=== PATIENT | female | born 1945 | race Caucasian/White ===

== ENCOUNTER → 2022-11-04 23:20 | Outpatient (CLI) | payer MEDICARE, SELFPAY ==
[2022-11-04 18:43] LABS: Basophils % 0.5 % (0.1-2.0); Eosinophils # 0.2 K/mm3 (0.0-0.4); Eosinophils % 2.6 % (0.1-12.0); Hemoglobin 14.5 g/dL (12.2-16.2); Lymphocytes % 30.1 % (10-50); Mean Corpuscular HGB Conc 31.5 g/dL (31.8-35.4); Mean Corpuscular Volume 95.3 fl (81-99); Mean Platelet Volume 9.3 fl (7.4-10.4); Monocytes # 0.4 K/mm3 (0.1-1.0); Monocytes % 6.4 % (1.7-9.3); Neutrophils # 3.9 K/mm3 (1.8-7.8); Neutrophils % 60.3 % (37.0-80.0); Platelet Count 221 K/mm3 (142-424); Red Blood Count 4.83 M/mm3 (4.20-5.40); Red Cell Distribution Width 13.6 % (11.5-17.5); White Blood Count 6.5 K/mm3 (4.8-10.8)
[2022-11-04 19:03] LABS: Alanine Aminotransferase 10 U/L (12-78); Albumin Level 3.9 g/dl (3.5-5.0); Albumin/Globulin Ratio 1.2 (1.1-1.8); Alkaline Phosphatase 142 U/L (38-126); Anion Gap 14.4 mEq/L (5-15); Aspartate Amino Transferase 23 U/L (14-36); Bilirubin,Total 0.4 mg/dl (0.2-1.3); Blood Urea Nitrogen 13 mg/dl (7-17); Calcium 8.4 mg/dl (8.4-10.2); Carbon Dioxide 26 mmol/L (22.0-30.0); Chloride 105 mmol/L (98-107); Estimated Glomerular Filt Rate 120 ml/min (>60); GFR (African American) 145 ML/MIN (>60); Globulin 3.2 g/dL (1.3-3.2); Glucose 80 mg/dl (74-100); Potassium 4.4 mmoL/L (3.5-5.1); Sodium 141 mmol/L (136-145); Total Protein,Serum 7.1 g/dl (6.3-8.2)
[2022-11-04 19:35] LABS: Thyroid Stimulating Hormone 1.97 uIU/mL (0.465-4.68)
== END ==
PROVIDERS: PCP Family Medicine; Visit Provider Family Medicine
DX: E78.00 Pure hypercholesterolemia, unspecified (principal); Z76.89 Persons encountering health services in other specified circumstances; Z79.899 Other long term (current) drug therapy
CPT/HCPCS: 80053; 84443; 85025

== ENCOUNTER 2023-11-09 19:51 | Inpatient (IN) | payer MEDICARE, MEDICAID, SELFPAY ==
[2023-11-09] VITALS (11 sets, daily range): BP systolic 87–142; BP diastolic 52–78; PULSE 70–105; RESP 10–17; TEMP 36.6–37.6; O2SAT 82–100; BMI 21.6; BMI 20.6
--- NOTE | 2023-11-09 19:56 | CT_ITS ---
PROCEDURE INFORMATION: Exam: CTA Head With Contrast, Arteriography Exam date and time: 11/09/2023 8:04 PM Age: 78 years old Clinical indication: Stroke-like symptoms; Altered mental status/memory loss; Additional info: Prior CVA with L deficits; Now with ams/lethargy TECHNIQUE: Imaging protocol: Computed tomographic angiography of the head with contrast. Exam focused on the arteries. 3D rendering (Not supervised by radiologist): MIP and/or 3D reconstructed images were created by the technologist. Radiation optimization: All CT scans at this facility use at least one of these dose optimization techniques: automated exposure control; mA and/or kV adjustment per patient size (includes targeted exams where dose is matched to clinical indication); or iterative reconstruction. Contrast material: ISOVUE; Contrast volume: 100 ml; Contrast route: INTRAVENOUS (IV); COMPARISON: CT HEAD/BRAIN WO CON 11/09/2023 8:01 PM FINDINGS: ANTERIOR CIRCULATION: Right internal carotid artery: Intracranial segment is patent with no significant stenosis. No aneurysm. Right middle cerebral artery: No occlusion or significant stenosis. No aneurysm. Right anterior cerebral artery: No occlusion or significant stenosis. No aneurysm. Left internal carotid artery: Intracranial segment is patent with no significant stenosis. No aneurysm. Left middle cerebral artery: No occlusion or significant stenosis. No aneurysm. Left anterior cerebral artery: No occlusion or significant stenosis. No aneurysm. POSTERIOR CIRCULATION: Right vertebral artery: No occlusion or significant stenosis. No aneurysm. Left vertebral artery: No occlusion or significant stenosis. No aneurysm. Basilar artery: No occlusion or significant stenosis. No aneurysm. Right posterior cerebral artery: No occlusion or significant stenosis. No aneurysm. Left posterior cerebral artery: No occlusion or significant stenosis. No aneurysm. Brain: Please see patient's CT brain report, performed same day. Cerebral ventricles: No ventriculomegaly. Bones/joints: Unremarkable. No acute fracture. Soft tissues: Unremarkable. IMPRESSION: No large vessel stenosis or occlusion.
--- NOTE | 2023-11-09 19:56 | CT_ITS ---
PROCEDURE INFORMATION: Exam: CTA Neck With Contrast Exam date and time: 11/09/2023 8:04 PM Age: 78 years old Clinical indication: Stroke-like symptoms; Altered mental status/memory loss; Additional info: Prior CVA with L deficits; Now with ams/lethargy TECHNIQUE: Imaging protocol: Computed tomographic angiography of the neck with contrast. Exam focused on the cervical segments of the vasculature. 3D rendering (Not supervised by radiologist): MIP and/or 3D reconstructed images were created by the technologist. Radiation optimization: All CT scans at this facility use at least one of these dose optimization techniques: automated exposure control; mA and/or kV adjustment per patient size (includes targeted exams where dose is matched to clinical indication); or iterative reconstruction. Contrast material: ISOVUE; Contrast volume: 100 ml; Contrast route: INTRAVENOUS (IV); COMPARISON: CT ANGIO HEAD 11/09/2023 8:04 PM FINDINGS: Right common carotid artery: No stenosis. No dissection or occlusion. Right internal carotid artery: No stenosis of the extracranial segment. No dissection or occlusion. Right external carotid artery: No occlusion or stenosis of the origin. Left common carotid artery: No stenosis. No dissection or occlusion. Left internal carotid artery: No stenosis of the extracranial segment. No dissection or occlusion. Left external carotid artery: No occlusion or stenosis of the origin. Right vertebral artery: No stenosis. No dissection or occlusion. Left vertebral artery: No stenosis. No dissection or occlusion. Soft tissues: Normal. No significant soft tissue swelling. Bones/joints: Degenerative changes noted throughout the visualized cervical and thoracic spine. Prominent kyphosis of the cervical spine noted. Posterior subluxation of C3 on C4 anterior subluxation of C5 on C6. Multilevel degenerative disc disease with central canal stenosis and bilateral neural foraminal narrowing noted. Multilevel facet arthropathy noted. Age-indeterminate vertebral body height loss of T3 and T4 noted. Age-indeterminate severe vertebral body height loss of T7. Follow-up clinically. IMPRESSION: 1. No severe stenosis or occlusion. 2. Additional nonacute findings, noted above REFERENCES: NASCET CRITERIA. The degree of stenosis in the cervical segment of the internal carotid artery is based on NASCET criteria. Normal is no stenosis. Mild is less than 50% stenosis. Moderate is 50-69% stenosis. Severe is 70% to 99% stenosis. Total occlusion is no detectable patent lumen.
--- NOTE | 2023-11-09 19:56 | XR_ITS ---
PROCEDURE INFORMATION: Exam: XR Chest Exam date and time: 11/09/2023 8:03 PM Age: 78 years old Clinical indication: Other: AMS TECHNIQUE: Imaging protocol: Radiologic exam of the chest. Views: 1 view. COMPARISON: No relevant prior studies available. FINDINGS: Lungs: Scarring versus atelectasis noted left lung base. Overall decreased left lung volumes noted, compared with right side. Pleural spaces: Unremarkable. No pleural effusion. No obvious pneumothorax. Heart/Mediastinum: Unremarkable. No cardiomegaly. Bones/joints: Diffuse osteopenia noted. Degenerative changes noted in the bilateral shoulders and thoracolumbar spine.. IMPRESSION: 1. Left lower lobe atelectasis versus scarring with decreased volume of left lung, compared with the right side. 2. No focal airspace consolidation
--- NOTE | 2023-11-09 19:56 | CT_ITS ---
PROCEDURE INFORMATION: Exam: CT Head Without Contrast Exam date and time: 11/09/2023 8:01 PM Age: 78 years old Clinical indication: Stroke-like symptoms; Altered mental status/memory loss; Additional info: Prior CVA with L deficits; Now with ams/lethargy TECHNIQUE: Imaging protocol: Computed tomography of the head without contrast. Radiation optimization: All CT scans at this facility use at least one of these dose optimization techniques: automated exposure control; mA and/or kV adjustment per patient size (includes targeted exams where dose is matched to clinical indication); or iterative reconstruction. Other technique: STROKE PROTOCOL was implemented. COMPARISON: No relevant prior studies available. FINDINGS: Brain: An off axis imaging technique is used. There is no acute hemorrhage or obvious acute infarct. Cortical volume loss noted. Scattered hypodensities noted in the bilateral periventricular and deep white matter. Atherosclerosis noted in the bilateral cavernous carotid arteries. The patient's gaze, based on the position of the bilateral lenses, is divergent. Cerebral ventricles: No ventriculomegaly. Paranasal sinuses: Mucosal thickening is noted in the bilateral paranasal sinuses Mastoid air cells: Visualized mastoid air cells are well aerated. Bones/joints: Unremarkable. No acute fracture. Soft tissues: Unremarkable. IMPRESSION: 1. No acute intracranial disease or hemorrhage. 2. No obvious acute infarct. Please note if the patient's symptoms do not improve, or worsen, consider MRI with diffusion imaging. 3. Chronic deep white matter ischemic and senescent changes noted. Please see above. ASSESSMENT: ASPECTS ([place] Stroke Program Early CT Score) is 10.
--- NOTE | 2023-11-09 20:06 | PC.NURSE ---
ciera bustamante speaking with sister at this time.
--- NOTE | 2023-11-09 20:09 | PC.NURSE ---
return from ct at this time. placed back on monitor
[2023-11-09 20:10] LABS: VBG Oxygen Saturation 96.7 % (50-70); VBG PCO2 37.5 mmol/L (35-51); VBG PH 7.39 mmol/L (7.31-7.41); VBG PO2 84.4 mmol/L (28-40); VBG Total CO2 23.2 mmol/L (23-27)
[2023-11-09] MEDS: SODIUM CHLORIDE 0.9% 10ML SYR (RAD ONLY) 10 ML IV (20:12)
[2023-11-09] MEDS: 0.9 % SODIUM CHLORIDE 50 ML VIAL IV (20:12)
[2023-11-09 20:13] LABS: Basophils % 0.3 % (0.1-2.0); Eosinophils # 0.1 K/mm3 (0.0-0.4); Eosinophils % 0.5 % (0.1-12.0); Hematocrit 40.8 % (37.0-47.0); Hemoglobin 13.3 g/dL (12.2-16.2); Lymphocytes # 0.8 K/mm3 (0.7-4.5); Lymphocytes % 6.3 % (10-50); Mean Corpuscular HGB Conc 32.7 g/dL (31.8-35.4); Mean Corpuscular Hemoglobin 31.8 pg (27.0-31.2); Mean Corpuscular Volume 97.4 fl (81-99); Mean Platelet Volume 8.6 fl (7.4-10.4); Monocytes # 0.7 K/mm3 (0.1-1.0); Monocytes % 5.2 % (1.7-9.3); Neutrophils # 10.9 K/mm3 (1.8-7.8); Neutrophils % 87.6 % (37.0-80.0); Platelet Count 246 K/mm3 (142-424); Red Blood Count 4.19 M/mm3 (4.20-5.40); Red Cell Distribution Width 12.6 % (11.5-17.5); White Blood Count 12.4 K/mm3 (4.8-10.8)
[2023-11-09] MEDS: IOPAMIDOL-370 (76%);100ML BOTTLE 100 ML IV (20:13)
[2023-11-09 20:14] LABS: MANUAL DIFFERENTIAL MANUAL DIFFERENTIAL (MANUAL DIFF)
--- NOTE | 2023-11-09 20:18 | HMH.EDGENADL ---
Discharge Plan Disposition Patient Disposition: Admitted Clinical Impressions Clinical Impression: AMS (altered mental status), Pneumonia, Respiratory failure Discharge ED Provider: Kaur Alcaraz General Adult HPI General Chief complaint: Shortness of Breath/Dyspnea Stated complaint: AMS Time Seen by Provider: 11/09/23 19:56 History of Present Illness HPI narrative: This patient is a 78-year-old female presenting to the emergency department for evaluation with concern for breathing difficulties. According to EMS who brought the patient in, they were called to the home because the patient seemed to be having trouble breathing. Patient is in care of her sister and grandson. They were not able to provide much other history. They stated that she had snoring upon their arrival so they put her on 15 L nonrebreather. On this, her oxygen saturation and vitals were fine. They noted she did not talk to them to contribute history, but she was maintaining her airway. We called and had an interactive discussion with the patient's sister who advised that she has a history of CP and is bedbound at baseline. She is mostly nonverbal according to the sister, but does answer some simple questions. She notes that she called EMS because she seemed to be breathing more shallow than usual. She also noted that she was grabbing at her neck, so she thought maybe she had neck pain, so she did give her Tylenol. No other concerns noted at this time. Patient does not contribute to history given her baseline mental status. Related Data Home Medications Medication Instructions Recorded Confirmed tizanidine 4 mg tablet 4 mg PO BID PRN 11/04/22 01/06/23 atorvastatin 40 mg tablet 40 mg PO HS 01/06/23 01/06/23 metoprolol tartrate 25 mg tablet 25 mg PO DAILY 01/06/23 01/06/23 pantoprazole 40 mg granules 40 mg PO DAILY 01/06/23 01/06/23 delayed-release for susp in packet Previous Rx's Medication Instructions Recorded diazepam 5 mg tablet 5 mg PO HS PRN sleep #30 tabs 11/04/22 gabapentin 800 mg tablet 800 mg PO TID #90 tabs 11/04/22 Allergies Allergy/AdvReac Type Severity Reaction Status Date / Time No Known Allergies Allergy Verified 01/06/23 13:47 [facility] Disclaimer: The information contained in this section may have been updated after the patient was seen, as this information can be updated by other users. Social History Smoking Status: Unknown if ever smoked alcohol intake: never substance use type: denies use current occupational status: disabled Travel in the last 8 weeks: None household members: family housing: house marital status: single education level: other ROS Obtained: Yes All systems reviewed & no additional complaints except as documented Physical Exam General General appearance: alert Head Head exam: atraumatic and normocephalic Eye Eye exam: Present normal appearance, PERRL and EOMI ENT ENT exam: Present normal exam, normal oropharynx, mucous membranes moist and normal external ear exam Neck Neck exam: Present normal inspection, full ROM and trachea midline; Absent tenderness Chest Chest inspection: Present symmetric chest wall rise, rash (dermatitis below each breast) and other; Absent tenderness Respiratory Respiratory exam: Present normal lung sounds bilaterally; Absent respiratory distress, wheezes, stridor or accessory muscle use Cardiovascular Cardiovascular exam: Present regular rate and normal rhythm Abdominal Exam Abdominal exam: Present soft; Absent distention, tenderness or guarding Extremities Exam Extremities exam: Present normal capillary refill and other (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 Margarito Inquiry Pt receiving controlled substance: No Vital Signs: 11/09/23 19:51 11/09/23 20:14 11/09/23 20:30 Temperature 99.6 F Temperature Source Rectal Pulse Rate 105 H 99 H Pulse Rate [Left] 101 H Respiratory Rate 15 13 15 Blood Pressure 142/76 H 132/72 Blood Pressure [Right Arm] 139/78 Blood Pressure Mean 109 92 Blood Pressure Mean [Right Arm] 98 Blood Pressure Source [Right Arm] Automatic Cuff Blood Pressure Position Blood Pressure Position [Right Arm] Supine 02 Sat by Pulse Oximetry 94 L 95 82 L Oxygen Delivery Method Room Air Room Air Oxygen Flow Rate (LPM) 11/09/23 20:45 11/09/23 21:19 11/09/23 21:30 Temperature Temperature Source Pulse Rate 99 H 83 79 Pulse Rate [Left] Respiratory Rate 15 12 12 Blood Pressure 107/61 L 97/55 L Blood Pressure [Right Arm] Blood Pressure Mean 75 69 Blood Pressure Mean [Right Arm] Blood Pressure Source [Right Arm] Blood Pressure Position Blood Pressure Position [Right Arm] 02 Sat by Pulse Oximetry 96 95 94 L Oxygen Delivery Method Nasal Cannula Nasal Cannula Nasal Cannula Oxygen Flow Rate (LPM) 11/09/23 22:00 11/09/23 22:12 11/09/23 22:16 Temperature Temperature Source Pulse Rate 73 70 71 Pulse Rate [Left] Respiratory Rate 14 13 17 Blood Pressure 88/54 L 87/55 L 94/54 L Blood Pressure [Right Arm] Blood Pressure Mean 62 63 65 Blood Pressure Mean [Right Arm] Blood Pressure Source [Right Arm] Blood Pressure Position Blood Pressure Position [Right Arm] 02 Sat by Pulse Oximetry 95 96 95 Oxygen Delivery Method Nasal Cannula Nasal Cannula Nasal Cannula Oxygen Flow Rate (LPM) 11/09/23 22:57 Temperature 99.6 F Temperature Source Rectal Pulse Rate 87 Pulse Rate [Left] Respiratory Rate 15 Blood Pressure 98/52 L Blood Pressure [Right Arm] Blood Pressure Mean Blood Pressure Mean [Right Arm] Blood Pressure Source [Right Arm] Blood Pressure Position Supine Blood Pressure Position [Right Arm] 02 Sat by Pulse Oximetry Oxygen Delivery Method Nasal Cannula Oxygen Flow Rate (LPM) 2 Lab Data Lab results reviewed: Yes I reviewed the patient's lab results. Lab Results 11/09/23 19:56: VBG pH 7.39, VBG pCO2 37.5, VBG pO2 84.4 H, VBG HCO3 22.0 L, VBG Total CO2 23.2, VBG O2 Saturation 96.7 H, VBG Base Excess -3.0 L, VBG Lactic Acid 2.0 11/09/23 19:58: WBC 12.4 H, RBC 4.19 L, Hgb 13.3, Hct 40.8, MCV 97.4, MCH 31.8 H, MCHC 32.7, RDW 12.6, Plt Count 246, MPV 8.6, Neut % (Auto) 87.6 H, Lymph % (Auto) 6.3 L, [place] % (Auto) 5.2, Eos % (Auto) 0.5, Baso % (Auto) 0.3, Neut # (Auto) 10.9 H, Lymph # (Auto) 0.8, [place] # (Auto) 0.7, Eos # (Auto) 0.1, Baso # (Auto) 0.0, Total Counted 100, Neutrophils % (Manual) 85 H, Lymphocytes % (Manual) 6 L, Monocytes % (Manual) 9, Platelet Estimate Normal, [place] Cells 1+, PT 11.7, INR 1.09, APTT 29.3, Sodium 134 L, Potassium 3.5, Chloride 100, Carbon Dioxide 28, Anion Gap 9.5, BUN 12, Creatinine 0.50 L, Estimated Creat Clear 43, Estimated GFR 120, Est GFR ( Amer) 145, Glucose 215 H, Lactate 2.1, Calcium 8.3 L, Total Bilirubin 1.1, AST 37 H, ALT 25, Alkaline Phosphatase 134 H, Ammonia 13, Troponin I < 0.01, Total Protein 6.8, Albumin 3.5, Globulin 3.3 H, Albumin/Globulin Ratio 1.1, Lipase 35, TSH 0.89, Thyroxine (T4) 10.7 11/09/23 20:20: SARS-CoV-2 (PCR) Not detected, Influenza A Untype (PCR) Not detected, Influenza Type B (PCR) Not detected 11/09/23 20:40: Urine Color Yellow, Urine Appearance Clear, Urine pH 6.5, Ur Specific [place] 1.015, Urine Protein 1+, Urine Glucose (UA) 1+, Urine Ketones Trace, Urine Blood 2+, Urine Nitrate Negative, Urine Bilirubin Negative, Urine Urobilinogen 2.0, Ur Leukocyte Esterase Negative, Urine RBC 3-5, Urine WBC Occasional, Ur Squamous Epith Cells Occasional, Urine Bacteria 1+, Urine Mucus 1+, Urine Opiates Screen Negative, Urine Methadone Screen Negative, Ur Barbituates Screen Negative, Ur Phencyclidine Scrn Negative, Ur Amphetamines Screen Negative, U Benzodiazepines Scrn Negative, Urine Cocaine Screen Negative, U Marijuana (THC) Screen Negative 11/09/23 22:57: Troponin I 0.07 H 11/09/23 19:58 11/09/23 19:58 Orders (Tests/Meds): ED MEDICATIONS Generic Name Dose Route Start Last Admin Trade Name Freq PRN Reason Stop Dose Admin Acetaminophen 650 mg 11/09/23 22:46 Acetaminophen 325mg Tab PO 12/09/23 22:45 Q4HP PRN Fever or Mild Pain (1-3) Enoxaparin Sodium 40 mg 11/10/23 09:00 Enoxaparin 40mg/0.4ml Syringe SQ 12/10/23 08:59 DAILY [facility] Lactated Ringer's 1,640 mls @ 820 mls/hr 11/09/23 22:18 11/09/23 22:21 Lactated Ringer's 1000 Ml Bag 30 ml/kg infuse over 2 hr (1640 ml) 11/10/23 00:17 820 mls/hr IV Administration .Q2H ONE Sodium Chloride 1,000 mls @ 50 mls/hr 11/09/23 23:00 Sod Chlor 0.9% 1000ml Bag IV 12/09/23 22:59 .Q20H SHIMA Azithromycin 500 mg/ Sodium 250 mls @ 250 mls/hr 11/10/23 23:00 Chloride IV 11/20/23 22:59 Q24H SHMIA Ceftriaxone Sodium 1 gm/ 50 mls @ 100 mls/hr 11/10/23 23:00 Sodium Chloride IV 11/20/23 22:59 Q24H [facility] Morphine Sulfate 2 mg 11/09/23 22:46 Morphine 2mg/Ml Syringe IV 12/09/23 22:45 Q2HP PRN Severe Pain (7-10) Nicotine 21 mg 11/09/23 22:46 Nicotine 21mg/24hr Patch TD 12/09/23 22:45 DAILYP PRN Nicotine Cravings Ondansetron HCl 4 mg 11/09/23 22:46 Ondansetron 4mg/2ml Vial IV 12/09/23 22:45 Q8HP PRN Nausea Pantoprazole Sodium 40 mg 11/10/23 09:00 Pantoprazole 40mg Tablet PO 12/10/23 08:59 DAILY SHIMA Sodium Chloride 10 ml 11/09/23 22:46 Sodium Chloride 0.9% 10ml Flush Syringe IV 12/09/23 22:45 NEEDED PRN Maintain IV Site Discontinued Medications Generic Name Dose Route Start Last Admin Trade Name Freq PRN Reason Stop Dose Admin Ceftriaxone Sodium 2 gm/ 100 mls @ 200 mls/hr 11/09/23 21:47 11/09/23 21:55 Sodium Chloride IV 11/09/23 22:16 200 mls/hr ONCE ONE Administration Azithromycin 500 mg/ Sodium 250 mls @ 250 mls/hr 11/09/23 21:47 11/09/23 22:13 Chloride IV 11/09/23 21:48 250 mls/hr ONCE ONE Administration Iopamidol 100 ml 11/09/23 20:10 11/09/23 20:13 Iopamidol-370 (76%);100ml Bottle IV 11/09/23 20:11 100 ml ONCE ONE Administration Sodium Chloride 50 ml 11/09/23 20:10 11/09/23 20:12 0.9 % Sodium Chloride 50 Ml Vial IV 11/09/23 20:11 50 ml ONCE ONE Administration Sodium Chloride 10 ml 11/09/23 20:10 11/09/23 20:12 Sodium Chloride 0.9% 10ml Syr (Rad Only) IV 11/09/23 20:11 10 ml ONCE ONE Administration ORDERS Category Date Time Status CT angio head Stat Cat Scan 11/09/23 19:[address] angio neck Stat Cat Scan 11/09/23 19:[address] head/brain wo con Stat Cat Scan 11/09/23 19:56 Completed XR chest portable Stat Exams 11/09/23 19:56 Completed Activated Partial Thrombo Time Stat Lab 11/09/23 19:58 Completed Ammonia Stat Lab 11/09/23 19:58 Completed CBC w/Auto Diff [Complete Blood Count Auto Diff] Stat Lab 11/09/23 19:58 Completed CMP [Comprehensive Metabolic Panel] Stat Lab 11/09/23 19:58 Completed Complete Blood Count Auto Diff AMLAB Lab 11/10/23 06:00 Ordered Comprehensive Metabolic Panel AMLAB Lab 11/10/23 06:00 Ordered Lactic Acid Stat Lab 11/09/23 19:58 Completed Lipase Stat Lab 11/09/23 19:58 Completed Magnesium AMLAB Lab 11/10/23 06:00 Ordered Prothrombin Time INR Stat Lab 11/09/23 19:58 Completed Rapid PCR Covid and Flu A/B Stat Lab 11/09/23 20:20 Completed T4 (Thyroxine) Stat Lab 11/09/23 19:58 Completed Thyroid Stimulating Hormone Stat Lab 11/09/23 19:58 Completed Troponin I Q3H Lab 11/09/23 22:57 Completed Troponin I Q3H Lab 11/10/23 02:00 Ordered Troponin I Stat Lab 11/09/23 19:58 Completed UDS [Drug Screen,Urine] Stat Lab 11/09/23 20:40 Completed Urinalysis and Microscopic Stat Lab 11/09/23 20:40 Completed Blood Culture Stat Micro 11/09/23 21:30 Received Urine Culture Stat Micro 11/09/23 20:50 Received Venous Blood Gas Stat RT 11/09/23 19:56 Completed ECG Data Tracing #1: I reviewed this ECG and interpreted as documented below: Normal sinus rhythm with a ventricular rate of 82 bpm. Borderline left axis deviation. No acute ST changes concerning for ischemia. ECG initial impression date: 11/09/23 ECG initial impression time: 21:22 Medical Decision Narrative: In summary, this patient is a 78-year-old female presenting to the Emergency Department for evaluation of shallow respirations reported at home. Differential diagnoses considered include but are not limited to pneumonia, respiratory failure, CVA, intracranial hemorrhage. Ruling out the most morbid conditions drove assessment. On exam, the patient is alert and in no acute distress. Ultimately patient arrived prior to us being able to speak with her daughter to verify that she is at her baseline, so she was taken to CT scan emergently for stroke protocols given that we did not know that she at baseline is essentially nonverbal with chronic contractures. Workup included broad lab evaluation including infectious, metabolic, and tox workup. Chest x-ray was also obtained. I independently interpreted CT and x-ray prior to the radiologist read and noted to sterile, no acute intracranial hemorrhage, but patient does have concern for a possible left-sided pneumonia. Please see their read for final interpretation. Labs were obtained that demonstrated mild leukocytosis in the setting of probable pneumonia. Patient was noted to be hypoxic on room air with oxygen saturation in the high 80s, for which she was placed on 2 L nasal cannula. Given this as well as her shortness of breath at home, I feel that she clinically has pneumonia.. Patient looks dry on exam, so she was given a bolus of IV fluids. For pneumonia, she was given IV Rocephin and azithromycin. Ultimately, I feel that she would benefit from admission for continued monitoring given her low oxygen saturation. She is high risk with all of her chronic comorbidities. I had an interactive discussion with the hospitalist who admitted the patient for further evaluation and management. Critical Care Critical Care Time Critical Care Time: No
[2023-11-09 20:21] LABS: Chloride 100 mmol/L (98-107)
[2023-11-09 20:22] LABS: Potassium 3.5 mmoL/L (3.5-5.1); Sodium 134 mmol/L (136-145)
[2023-11-09 20:24] LABS: Activated Partial Thrombo Time 29.3 seconds (22.8-30.6); Alanine Aminotransferase 25 U/L (12-78); Ammonia 13 umol/L (9-30); Aspartate Amino Transferase 37 U/L (14-36); Blood Urea Nitrogen 12 mg/dl (7-17); Creatinine Clearance Estimated 43 mL/min (50-200); Estimated Glomerular Filt Rate 120 ml/min (>60); GFR (African American) 145 ML/MIN (>60); INR 1.09 (0.9-1.1); Prothrombin Time 11.7 seconds (10.1-12.5)
[2023-11-09 20:25] LABS: Albumin Level 3.5 g/dl (3.5-5.0); Albumin/Globulin Ratio 1.1 (1.1-1.8); Alkaline Phosphatase 134 U/L (38-126); Anion Gap 9.5 mEq/L (5-15); Bilirubin,Total 1.1 mg/dl (0.2-1.3); Calcium 8.3 mg/dl (8.4-10.2); Carbon Dioxide 28 mmol/L (22.0-30.0); Globulin 3.3 g/dL (1.3-3.2); Glucose 215 mg/dl (74-100); Lipase 35 U/L (23-300); Total Protein,Serum 6.8 g/dl (6.3-8.2)
[2023-11-09 20:26] LABS: Lactic Acid 2.1 mmol/L (0.7-2.1)
[2023-11-09 20:34] LABS: Coronavirus 19, PCR Not Detected (NotDetected); Influenza A, PCR Not Detected (NotDetected); Influenza B, PCR Not Detected (NotDetected)
[2023-11-09 20:38] LABS: Troponin I < 0.01 ng/ml (0.00-0.034)
[2023-11-09 20:42] LABS: Lymphocytes % 6 % (10-50); Monocytes % 9 % (2-9); Neutrophils % 85 % (42-76); Platelet Estimate Normal; T4 (Thyroxine) 10.7 ug/dl (5.53-11.0); Total Cells Counted 100
[2023-11-09 20:43] LABS: Burr Cells 1+
[2023-11-09 20:48] LABS: Microscopic, Urine URINE MICROSCOPIC (MICROSCOPIC)
[2023-11-09 20:54] LABS: Appearance,Urine CLEAR (Clear); Bilirubin,Urine Negative (Negative); Blood, Urine 2+ (Negative); Color,Urine YELLOW (Yellow); Glucose,Urine (UA) 1+ (Negative); Ketones,Urine TRACE (Negative); Leukocyte Esterase,Urine Negative (Negative); Nitrate,Urine Negative (Negative); PH,Urine 6.5 (5.0-8.5); Protein,Urine 1+ (Negative); Specific Gravity, Urine 1.015 (1.005-1.030)
[2023-11-09 20:56] LABS: Thyroid Stimulating Hormone 0.89 uIU/mL (0.465-4.68)
[2023-11-09 21:05] LABS: Barbiturates Screen,Urine Negative ng/ml (<200)
[2023-11-09 21:06] LABS: Benzodiazepines Screen,Urine Negative ng/ml (<200)
[2023-11-09 21:07] LABS: Amphetamine/Metha Screen,Urine Negative ng/ml (<1000); Cocaine Screen,Urine Negative ng/ml (<300)
[2023-11-09 21:08] LABS: Cannabinoid Screen,Urine Negative ng/ml (<50); Methadone Screen,Urine Negative ng/ml (<300)
[2023-11-09 21:09] LABS: Opiate Screen,Urine Negative ng/ml (<300)
[2023-11-09 21:10] LABS: Phencyclidine Screen,Urine Negative ng/ml (<25)
[2023-11-09 21:13] LABS: Bacteria,Urine 1+ /lpf; Mucus,Urine 1+ /lpf; Squamous Epithelial Cell,Urine Occasional #/hpf (0-5); WBC,Urine Occasional #/hpf (0-3)
--- NOTE | 2023-11-09 21:16 | ECG_ITS ---
APPROVED REPORT Exam: Resting ECG HR:82 bpm ECG Measurements Heart Rate 82 AXES HI 149 P 45 QRSd 95 QRS -28 QT 415 T -9 QTc 454 Conclusion SINUS RHYTHM BORDERLINE LEFT AXIS DEVIATION [QRS AXIS < -20] MODERATE VOLTAGE CRITERIA FOR LVH, CONSIDER NORMAL VARIANT [MEETS CRITERIA IN ONE OF: R(aVL), S(V1), R(V5), R(V5/V6)+S(V1)] BORDERLINE ECG Electronically signed by : TAMI VARGAS, 11/09/2023 23:53:43
--- NOTE | 2023-11-09 21:32 | PC.NURSE ---
blood culture x 2 collected and sent to lab
[2023-11-09] MEDS: CEFTRIAXONE SODIUM 2 GM in 0.9 % SODIUM CHLORIDE 100 ML IV (21:55)
--- NOTE | 2023-11-09 22:03 | PC.NURSE ---
Updated sister Mike about pna and uti dx, plan for abx and unsure of admit at this time
[2023-11-09] MEDS: AZITHROMYCIN 500 MG in 0.9 % SODIUM CHLORIDE 250 ML 250 MG IV (22:13)
[2023-11-09] MEDS: LACTATED RINGERS 1000ML 1,640 ML 820 ML IV (22:21)
--- NOTE | 2023-11-09 22:44 | EXP.HP ---
History of Present Illness *Admission Date: 11/09/23 *Reason for visit:: SOB *History of present illness: 78-year-old female presenting to the emergency department for evaluation with concern for breathing difficulties. According to EMS who brought the patient in, they were called to the home because the patient seemed to be having trouble breathing. Patient is in care of her sister and grandson. They were not able to provide much other history. They stated that she had snoring upon their arrival so they put her on 15 L nonrebreather. On this, her oxygen saturation and vitals were fine. They noted she did not talk to them to contribute history, but she was maintaining her airway. [facility] Disclaimer: The information contained in this section may have been updated after the patient was seen, as this information can be updated by other users. Medical History (Updated 11/10/23 @ 18:02 by Ruperto Gross MD) Cerebral palsy Social History Smoking Status: Unknown if ever smoked alcohol intake: never substance use type: denies use current occupational status: disabled Travel in the last 8 weeks: None household members: family housing: house marital status: single education level: other Review of Systems Review of Systems Review of systems:: unable to obtain Meds Home Medications and Allergies Home Medications Medication Instructions Recorded Confirmed Type No Known Home Medications 11/10/23 11/10/23 History New Prescriptions to Start Prescriptions: Allergies Allergy/AdvReac Type Severity Reaction Status Date / Time No Known Allergies Allergy Verified 01/06/23 13:47 Exam Data for Last 24 hours Vital signs and Labs for Last 24 Hours: Temp Pulse Resp BP Pulse Ox O2 Del Method 99.6 F 71 17 94/54 L 95 Nasal Cannula 11/09/23 19:51 11/09/23 22:16 11/09/23 22:16 11/09/23 22:16 11/09/23 22:16 11/09/23 22:16 Laboratory Results - last 24 hr 11/09/23 19:56: VBG pH 7.39, VBG pCO2 37.5, VBG pO2 84.4 H, VBG HCO3 22.0 L, VBG Total CO2 23.2, VBG O2 Saturation 96.7 H, VBG Base Excess -3.0 L, VBG Lactic Acid 2.0 11/09/23 19:58: WBC 12.4 H, RBC 4.19 L, Hgb 13.3, Hct 40.8, MCV 97.4, MCH 31.8 H, MCHC 32.7, RDW 12.6, Plt Count 246, MPV 8.6, Neut % (Auto) 87.6 H, Lymph % (Auto) 6.3 L, [place] % (Auto) 5.2, Eos % (Auto) 0.5, Baso % (Auto) 0.3, Neut # (Auto) 10.9 H, Lymph # (Auto) 0.8, [place] # (Auto) 0.7, Eos # (Auto) 0.1, Baso # (Auto) 0.0, Total Counted 100, Neutrophils % (Manual) 85 H, Lymphocytes % (Manual) 6 L, Monocytes % (Manual) 9, Platelet Estimate Normal, [place] Cells 1+, PT 11.7, INR 1.09, APTT 29.3, Sodium 134 L, Potassium 3.5, Chloride 100, Carbon Dioxide 28, Anion Gap 9.5, BUN 12, Creatinine 0.50 L, Estimated Creat Clear 43, Estimated GFR 120, Est GFR ( Amer) 145, Glucose 215 H, Lactate 2.1, Calcium 8.3 L, Total Bilirubin 1.1, AST 37 H, ALT 25, Alkaline Phosphatase 134 H, Ammonia 13, Troponin I < 0.01, Total Protein 6.8, Albumin 3.5, Globulin 3.3 H, Albumin/Globulin Ratio 1.1, Lipase 35, TSH 0.89, Thyroxine (T4) 10.7 11/09/23 20:20: SARS-CoV-2 (PCR) Not detected, Influenza A Untype (PCR) Not detected, Influenza Type B (PCR) Not detected 11/09/23 20:40: Urine Color Yellow, Urine Appearance Clear, Urine pH 6.5, Ur Specific [place] 1.015, Urine Protein 1+, Urine Glucose (UA) 1+, Urine Ketones Trace, Urine Blood 2+, Urine Nitrate Negative, Urine Bilirubin Negative, Urine Urobilinogen 2.0, Ur Leukocyte Esterase Negative, Urine RBC 3-5, Urine WBC Occasional, Ur Squamous Epith Cells Occasional, Urine Bacteria 1+, Urine Mucus 1+, Urine Opiates Screen Negative, Urine Methadone Screen Negative, Ur Barbituates Screen Negative, Ur Phencyclidine Scrn Negative, Ur Amphetamines Screen Negative, U Benzodiazepines Scrn Negative, Urine Cocaine Screen Negative, U Marijuana (THC) Screen Negative I & O for Last 24 hours: Intake & Output 11/06/23 11/07/23 11/08/23 11/09/23 23:59 23:59 23:59 23:59 Weight 57.153 kg Constitutional Constitutional: somnolent *Routine HEENT Exam Head: Present normocephalic Eye: Present EOMI and PERRL ENT: Present mucous membranes moist *Routine Neck Exam Neck: Present supple; Absent lymphadenopathy *Routine Respiratory Exam Respiratory: Present CTA bilaterally, rales and normal respiratory effort *Routine Cardiovascular Exam Cardiovascular: Present RRR *Routine Abdominal Exam Abdominal: Present soft and normoactive bowel sounds; Absent tenderness *Routine Rectal Exam Rectal:: deferred *Routine Genitalia Exam Genitalia:: deferred *Routine Extremities Exam Extremities: Absent cyanosis, clubbing or edema *Routine Skin Exam Skin: Present warm; Absent rash *Routine Neurological Exam Neurological: Present altered mental status Routine Psychiatric Exam Psychiatric: Present unable to assess H&P: Result Imaging and Cardiology EKG: Status: image reviewed by me, Preliminary report and final report Chest x-ray: Status: image reviewed by me, Preliminary report and final report CT scan - chest: Status: image reviewed by me, Preliminary report and final report CT scan - head: Status: image reviewed by me, Preliminary report and final report Assessment and Plan *Assessment and plan (1) Respiratory failure: Status: Acute Qualifiers: Chronicity: acute Respiratory failure complication: hypoxia Qualified Code(s): J96.01 - Acute respiratory failure with hypoxia Category: Medical Code(s): J96.90 - Respiratory failure, unspecified, unspecified whether with hypoxia or hypercapnia (2) Pneumonia: Status: Acute Qualifiers: Laterality: left Lung location: lower lobe of lung Pneumonia type: due to unspecified organism Qualified Code(s): J18.9 - Pneumonia, unspecified organism Category: Medical Code(s): J18.9 - Pneumonia, unspecified organism (3) AMS (altered mental status): Status: Acute Qualifiers: Altered mental status type: unspecified Qualified Code(s): R41.82 - Altered mental status, unspecified Category: Medical Code(s): R41.82 - Altered mental status, unspecified (4) Cerebral palsy: Status: Chronic Category: Medical Code(s): G80.9 - Cerebral palsy, unspecified Plan 78-year-old female presenting to the emergency department for evaluation with concern for breathing difficulties. Data is limited due to patient mental status. initially taken into stroke protocols. CTA of head negative. patient probably close to her baseline. Labs were obtained that demonstrated mild leukocytosis in the setting of probable pneumonia. Patient was noted to be hypoxic on room air with oxygen saturation in the high 80s, for which she was placed on 2 L nasal cannula. sespsis bolus given. started on Abx. Discussed with ED. Agreed for admission. Plan: -Acute respiratory failure secondary to left lobe pneumonia: presented with hypoxia and marked leukocytosis: Admit patient monitor O2 sat started on zithromax and ceft culture pending aspiration precaution speech eval monitor VS per unit. including sepsis or organs dysfunction daily labs UA pending -patient non verbal. Discussion with ED reported cerebral palsy. under assisted care by sister no family member available at the time of this interview to clarify medical history Nurse to reconcile home regime Physical and OT to eval patient Lovenox for DVT ppx. On protonix FUll code Rounded on patient after nurse practitioner. Personally examined and interviewed patient. Agree with exam findings and care plan as documented. Patient's mentation improved, she was verbal after improvement in white count and treatment for sepsis. Showing improvement on morning rounds.
--- NOTE | 2023-11-09 22:58 | PC.NURSE ---
Mike updated on pt admission status
[2023-11-09 23:25] LABS: Troponin I 0.07 ng/ml (0.00-0.034)
--- NOTE | 2023-11-09 23:30 | PC.NURSE ---
Patient arrived to unit from ED via stretcher at 23:15. Patient is alert to self and unable to answer questions. Patient will nod intermittently to questions. Patient comes from home, sister and grandson are patients caretakers. Staff transferred patient from stretcher to bed with patient noted with no pain. Patient on 2L of 02 per NC, baseline is room air. Bed in lowest position with call light in reach. Full assessment to follow.
[2023-11-09 23:43] LABS: Reflex Lactic Add Lactic Reflex
[2023-11-10] VITALS (7 sets, daily range): BP systolic 102–146; BP diastolic 62–94; PULSE 75–92; RESP 16–22; TEMP 36.6–37.3; O2SAT 97–100; BMI 20.6
[2023-11-10 00:15] LABS: Lactic Acid Follow Up (RFLX 1) 1.8 mmol/L (0.7-2.1)
[2023-11-10] MEDS: 0.9 % SODIUM CHLORIDE 1000ML 1,000 ML 50 ML IV ×2 (01:19→20:02)
[2023-11-10 02:48] LABS: Troponin I 0.06 ng/ml (0.00-0.034)
[2023-11-10 06:33] LABS: Chloride 107 mmol/L (98-107); Potassium 3.3 mmoL/L (3.5-5.1); Sodium 140 mmol/L (136-145)
[2023-11-10 06:35] LABS: Blood Urea Nitrogen 8 mg/dl (7-17); Creatinine Clearance Estimated 41 mL/min (50-200); Estimated Glomerular Filt Rate 120 ml/min (>60); GFR (African American) 145 ML/MIN (>60)
[2023-11-10 06:36] LABS: Alanine Aminotransferase 18 U/L (12-78); Albumin Level 2.8 g/dl (3.5-5.0); Alkaline Phosphatase 112 U/L (38-126); Anion Gap 5.3 mEq/L (5-15); Aspartate Amino Transferase 22 U/L (14-36); Bilirubin,Total 0.5 mg/dl (0.2-1.3); Calcium 8.2 mg/dl (8.4-10.2); Carbon Dioxide 31 mmol/L (22.0-30.0); Globulin 2.9 g/dL (1.3-3.2); Glucose 95 mg/dl (74-100); Total Protein,Serum 5.7 g/dl (6.3-8.2)
[2023-11-10 06:42] LABS: Basophils % 0.4 % (0.1-2.0); Eosinophils % 0.3 % (0.1-12.0); Hematocrit 36.8 % (37.0-47.0); Lymphocytes # 1.4 K/mm3 (0.7-4.5); Lymphocytes % 13.4 % (10-50); Mean Corpuscular HGB Conc 32.6 g/dL (31.8-35.4); Mean Corpuscular Hemoglobin 30.9 pg (27.0-31.2); Mean Corpuscular Volume 94.9 fl (81-99); Mean Platelet Volume 8.5 fl (7.4-10.4); Monocytes % 9.6 % (1.7-9.3); Neutrophils # 8.3 K/mm3 (1.8-7.8); Neutrophils % 76.4 % (37.0-80.0); Platelet Count 230 K/mm3 (142-424); Red Blood Count 3.88 M/mm3 (4.20-5.40); Red Cell Distribution Width 12.8 % (11.5-17.5); White Blood Count 10.8 K/mm3 (4.8-10.8)
[2023-11-10] MEDS: ENOXAPARIN 40MG/0.4ML SYRINGE 40 MG SQ (08:30)
[2023-11-10] MEDS: SODIUM CHLORIDE 3% 15ML NEB 3 ML IH (09:59)
--- NOTE | 2023-11-10 10:56 | PC.NURSE ---
I spoke with pt's sister who is her POA. She states pt's that pt does not take any home medications and would like someone to call and talk to her about options for pt to have placement.
--- NOTE | 2023-11-10 13:47 | HMH.PTEV ---
Physical Therapy Evaluation Rehab PT IP Evaluation Start: 11/10/23 11:11 Freq: ONCE Status: Active Protocol: Document 11/10/23 13:37 DANIELLE (Rec: 11/10/23 13:44 DANIELLE [id number]) Subjective/History History History Per H&P: 78-year-old female presenting to the emergency department for evaluation with concern for breathing difficulties. According to EMS who brought the patient in, they were called to the home because the patient seemed to be having trouble breathing. Patient is in care of her sister and grandson. They were not able to provide much other history. Subjective Subjective PLOF per ER documentation and CM: Pt was bedbound at baseline with multiple contractures and non-verbal. Pt lives with family who care for her as needed. New diagnosis of cancer in past 12 No months? Rehab PT IP Eval Objective Appearance Patient Behavior Cooperative,Guarded Patient Orientation Patient Baseline Difficulty following instructions mild Speech Pattern Aphasic Ambulation Patient Able to Ambulate No Balance Ability to Arise Unable Sitting Balance Leans or slides in chair Transfers Bed Transfer Ability Total/Dependent (100%) Rehab PT IP prob,goals,plan Problems Date of Evaluation: 11/10/23 Rehab Potential Rehab Potential Innapropriate for Skilled Therapy Discharge Plan PT Discharge Plan Pt not appropriate for skilled acute care PT at this time d/ t pt?s mobility being at baseline and pt's inability to participate in rehab. Pt would benefit from alf care placement. If family denies LT placement, pt is able to return to home if family is able to provide the necessary 24 hour care. Eval Complexity Eval Charge Codes 15538 - High Complexity PHYSICIAN CERTIFICATION: I certify the specified therapy services for Rama Hawthorne are required, authorized, and reviewed every 30 days.
--- NOTE | 2023-11-10 13:53 | HMH.OTEV ---
OT Inpatient Evaluation Rehab OT IP Evaluation Start: 11/10/23 11:11 Freq: ONCE Status: Active Protocol: [facility]23 [facility] (Rec: 11/10/23 13:53 [facility] [id number]) Rehab OT IP Assessment Subjective History Per H&P: 78-year-old female presenting to the emergency department for evaluation with concern for breathing difficulties. According to EMS who brought the patient in, they were called to the home because the patient seemed to be having trouble breathing. Patient is in care of her sister and grandson. They were not able to provide much other history. Subjective PLOF per ER documentation and CM: Pt was bedbound at baseline with multiple contractures and non-verbal. Pt lives with family who care for her as needed. Objective Right Upper Extremity Gross ROM Sev Limitation >75% Left Upper Extremity Gross ROM Sev Limitation >75% Shoulder ROM Limitations Contracture,Muscle Weakness Elbow ROM Limitations Contracture,Muscle Weakness Wrist Limitations of Range of Motion Contracture,Muscle Weakness Bed Mobility bed mobility-scooting,bed mobility - supine/sit Assist Level Total/Dependent (100%) Rehab OT IP prob,goals,plan Problems Date of Evaluation: 11/10/23 Rehab Potential Rehab Potential Innapropriate for Skilled Therapy Discharge Plan OT Discharge Plan Pt not appropriate for skilled acute care OT at this time because she is dependent for ADLs and transfers at baseline . She continues to be unable to participate in therapy. Pt would benefit from nursing home care placement. If family denies LT placement, pt is able to return to home if family is able to provide the necessary 24 hour care. Eval Complexity Eval Charge Codes 95089 - Moderate Complexity PHYSICIAN CERTIFICATION: I certify the specified therapy services for Rama Hawthorne are required, authorized, and reviewed every 30 days.
--- NOTE | 2023-11-10 17:58 | P.PN_ITS ---
Subjective *Date: 11/10/23 *Time: 17:58 Interval history: Patient spoke to me on exam, asked to be seated up. Makes eye contact. Oriented to self. Denies any chest pain or shortness of breath. Tolerating 2 L nasal cannula oxygen. No fever overnight. No nausea or vomiting. Family edinson ble to make it in to see patient today. Therapy evaluated, full assist, family interested in placement per discussion with nursing. Medical Exam Vital signs and Labs for Last 24 Hours: Vital Signs Temp Pulse Pulse Resp BP BP Pulse Ox 11/10/23 17:00 11/10/23 16:00 98.3 F 90 22 134/75 98 11/10/23 15:00 11/10/23 13:00 11/10/23 12:00 98.9 F 89 20 139/94 H 98 11/10/23 11:00 11/10/23 10:01 92 H 18 11/10/23 09:00 11/10/23 08:00 11/10/23 08:00 98.8 F 83 20 141/63 H 97 11/10/23 04:00 99.1 F 88 20 102/62 L 98 11/10/23 01:00 11/10/23 00:00 97.8 F 75 17 128/65 100 11/09/23 23:15 97.8 F 70 10 L 104/58 L 100 11/09/23 23:00 11/09/23 22:57 99.6 F 87 15 98/52 L 11/09/23 22:16 71 17 94/54 L 95 11/09/23 22:12 70 13 87/55 L 96 11/09/23 22:00 73 14 88/54 L 95 11/09/23 21:30 79 12 97/55 L 94 L 11/09/23 21:19 83 12 107/61 L 95 11/09/23 20:45 99 H 15 96 11/09/23 20:30 99 H 15 132/72 82 L 11/09/23 20:14 105 H 13 142/76 H 95 11/09/23 19:51 99.6 F 101 H 15 139/78 94 L O2 Del Method O2 Flow Rate 11/10/23 17:00 Nasal Cannula 2 11/10/23 16:00 Nasal Cannula 2 11/10/23 15:00 Nasal Cannula 2 11/10/23 13:00 Nasal Cannula 2 11/10/23 12:00 Nasal Cannula 2 11/10/23 11:00 Nasal Cannula 2 11/10/23 10:01 11/10/23 09:00 Nasal Cannula 2 11/10/23 08:00 Nasal Cannula 2 11/10/23 08:00 Nasal Cannula 2 11/10/23 04:00 11/10/23 01:00 Nasal Cannula 2 11/10/23 00:00 Nasal Cannula 11/09/23 23:15 Nasal Cannula 11/09/23 23:00 Nasal Cannula 2 11/09/23 22:57 Nasal Cannula 2 11/09/23 22:16 Nasal Cannula 11/09/23 22:12 Nasal Cannula 11/09/23 22:00 Nasal Cannula 11/09/23 21:30 Nasal Cannula 11/09/23 21:19 Nasal Cannula 11/09/23 20:45 Nasal Cannula 11/09/23 20:30 Room Air 11/09/23 20:14 Room Air 11/09/23 19:51 Intake and Output 11/10/23 11/10/23 11/10/23 07:59 15:59 23:59 Intake Total 0 / 822 822 / 822 Output Total 1200 / 1200 Balance 0 / -378 -1200 / -378 822 / -378 Intake: Intake, Oral Amount 0 / 0 Intake, Total IV Amount 822 / 822 0.9 % Sodium Chloride 1000ML 1, 822 / 822 000 ml @ 50 mls/hr IV .Q20H [facility] Rx#:[id number] Output: Output, Urine Amount 1200 / 1200 Other: Weight 54.885 kg Patient Weight 11/10/23 23:59 Weight 54.885 kg Laboratory Results - last 24 hr 11/09/23 19:56: VBG pH 7.39, VBG pCO2 37.5, VBG pO2 84.4 H, VBG HCO3 22.0 L, VBG Total CO2 23.2, VBG O2 Saturation 96.7 H, VBG Base Excess -3.0 L, VBG Lactic Acid 2.0 11/09/23 19:58: WBC 12.4 H, RBC 4.19 L, Hgb 13.3, Hct 40.8, MCV 97.4, MCH 31.8 H , MCHC 32.7, RDW 12.6, Plt Count 246, MPV 8.6, Neut % (Auto) 87.6 H, Lymph % (Auto) 6.3 L, [place] % (Auto) 5.2, Eos % (Auto) 0.5, Baso % (Auto) 0.3, Neut # (Auto) 10.9 H, Lymph # (Auto) 0.8, [place] # (Auto) 0.7, Eos # (Auto) 0.1, Baso # (Auto) 0.0, Total Counted 100, Neutrophils % (Manual) 85 H, Lymphocytes % (Manual) 6 L, Monocytes % (Manual) 9, Platelet Estimate Normal, [place] Cells 1+, PT 11.7, INR 1.09, APTT 29.3, Sodium 134 L, Potassium 3.5, Chloride 100, Carbon Dioxide 28, Anion Gap 9.5, BUN 12, Creatinine 0.50 L, Estimated Creat Clear 43, Estimated GFR 120, Est GFR ( Amer) 145, Glucose 215 H, Lactate 2.1, Calcium 8.3 L, Total Bilirubin 1.1, AST 37 H, ALT 25, Alkaline Phosphatase 134 H , Ammonia 13, Troponin I < 0.01, Total Protein 6.8, Albumin 3.5, Globulin 3.3 H, Albumin/Globulin Ratio 1.1, Lipase 35, TSH 0.89, Thyroxine (T4) 10.7 11/09/23 20:20: SARS-CoV-2 (PCR) Not detected, Influenza A Untype (PCR) Not detected, Influenza Type B (PCR) Not detected 11/09/23 20:40: Urine Color Yellow, Urine Appearance Clear, Urine pH 6.5, Ur Specific [place] 1.015, Urine Protein 1+, Urine Glucose (UA) 1+, Urine Ketones Trace, Urine Blood 2+, Urine Nitrate Negative, Urine Bilirubin Negative, Urine Urobilinogen 2.0, Ur Leukocyte Esterase Negative, Urine RBC 3-5, Urine WBC Occasional, Ur Squamous Epith Cells Occasional, Urine Bacteria 1+, Urine Mucus 1+, Urine Opiates Screen Negative, Urine Methadone Screen Negative, Ur Barbituates Screen Negative, Ur Phencyclidine Scrn Negative, Ur Amphetamines Screen Negative, U Benzodiazepines Scrn Negative, Urine Cocaine Screen Negative, U Marijuana (THC) Screen Negative 11/09/23 22:57: Troponin I 0.07 H 11/09/23 23:58: Lactate 1.8 11/10/23 02:05: Troponin I 0.06 H 11/10/23 05:54: WBC 10.8, RBC 3.88 L, Hgb 12.0 L, Hct 36.8 L, MCV 94.9, MCH 30.9, MCHC 32.6, RDW 12.8, Plt Count 230, MPV 8.5, Neut % (Auto) 76.4, Lymph % (Auto) 13.4, [place] % (Auto) 9.6 H, Eos % (Auto) 0.3, Baso % (Auto) 0.4, Neut # (Auto) 8.3 H, Lymph # (Auto) 1.4, [place] # (Auto) 1.0, Eos # (Auto) 0.0, Baso # (Auto) 0.0, Sodium 140, Potassium 3.3 L, Chloride 107, Carbon Dioxide 31 H, Anion Gap 5.3, BUN 8 D, Creatinine 0.50 L, Estimated Creat Clear 41, Estimated GFR 120, Est GFR ( Amer) 145, Glucose 95 D, Calcium 8.2 L, Magnesium 2.0, Total Bilirubin 0.5, AST 22 D, ALT 18 D, Alkaline Phosphatase 112, Total Protein 5.7 L, Albumin 2.8 L D, Globulin 2.9, Albumin/Globulin Ratio 1.0 L I & O for Labs for Last 24 Hours: Intake & Output 11/07/23 11/08/23 11/09/23 11/10/23 23:59 23:59 23:59 23:59 Intake Total 822 / 822 Output Total 1200 / 1200 Balance -378 / -378 Weight 54.885 kg 54.885 kg Constitutional: Present no acute distress, thin, chronically ill appearing and cooperative Head: Present atraumatic and normocephalic ENT: Present normal exam Neck: Present normal inspection Respiratory: Present normal respiratory effort; Absent rhonchi or wheezes Cardiac: Present Reg Rate and Rhythm GI: Present soft and normal bowel sounds; Absent distention or tenderness Extremities: Present normal inspection and full ROM; Absent edema Comment:: Contractures of upper limbs bilaterally, stiffness in legs Skin: Present intact; Absent erythema Neuro: Present alert and awake Comment:: Chronic contracture and debility from cerebral palsy. Assessment and Plan *Assessment and plan (1) Pneumonia: Status: Acute Qualifiers: Laterality: left Lung location: lower lobe of lung Pneumonia type: due to unspecified organism Qualified Code(s): J18.9 - Pneumonia, unspecified organism Category: Medical Code(s): J18.9 - Pneumonia, unspecified organism (2) Respiratory failure: Status: Acute Qualifiers: Chronicity: acute Respiratory failure complication: hypoxia Qualified Code(s): J96.01 - Acute respiratory failure with hypoxia Category: Medical Code(s): J96.90 - Respiratory failure, unspecified, unspecified whether with hypoxia or hypercapnia (3) Cerebral palsy: Status: Chronic Category: Medical Code(s): G80.9 - Cerebral palsy, unspecified (4) AMS (altered mental status): Status: Acute Qualifiers: Altered mental status type: unspecified Qualified Code(s): R41.82 - Altered mental status, unspecified Category: Medical Code(s): R41.82 - Altered mental status, unspecified Plan 78-year-old female presenting to the emergency department for evaluation with concern for breathing difficulties. Data is limited due to patient mental status. initially taken into stroke protocols. CTA of head negative. patient probably close to her baseline. Labs were obtained that demonstrated mild leukocytosis in the setting of probable pneumonia. Patient was noted to be hypoxic on room air with oxygen saturation in the high 80s, for which she was placed on 2 L nasal cannula. sespsis bolus given. started on Abx. Discussed with ED. Agreed for admission. Patient has done well since admission. Improving clinically. Interactive on exam. Appears to be at baseline mentation. Therapy evaluating today. Problems addressed as follows: -Acute respiratory failure secondary to left lobe pneumonia: White cell count improved to 10.8. Tolerating 2 L nasal cannula with goal sats greater 90%. Wean as tolerated. Repeat CBC, CMP, magnesium ordered for the morning. Electrolytes normal with sodium 140, chloride 107, potassium 3.3, magnesium 2.0. Continue ceftriaxone and azithromycin daily. Anticipate 5 days of antibiotics. Blood and sputum cultures pending Speech consult placed, passed bedside swallow with nursing. Will continue modified diet for now pending further recommendations from speech Urinalysis pending Personally reviewed chest imaging, questionable left sided airspace disease versus hypoinflation. Elevated troponin: troponin peaked at 0.06. Patient denies any chest pain today. Suspect due to the physiologic stress of her event with hypoxia yesterday. In light of no symptoms, will hold on further consult and eval pending goals of care discussion. Cerebral palsy: Chronic, complicates all aspects of her care. Patient necessitating significant assistance. PT and OT evaluating. Will discuss goals of care with family and placement recommendations. Lovenox for DVT ppx On protonix Modified diet Full code
[2023-11-10] MEDS: MORPHINE 2MG/ML SYRINGE 2 MG IV (19:13)
[2023-11-10] MEDS: PANTOPRAZOLE 40MG TABLET 40 MG PO (20:02)
--- NOTE | 2023-11-10 21:19 | PC.NURSE ---
LATANYA Hoff called and wants to speak with Dr. Gross but was informed he will be back in the morning and she can call then, this RN will pass along to the dayshift nurse.
[2023-11-10] MEDS: POTASSIUM CHLORIDE 20MEQ TAB 40 MEQ PO (21:27)
[2023-11-10] MEDS: CEFTRIAXONE 1 GM 1 GM in 0.9 % SODIUM CHLORIDE 50 ML IV (22:00)
--- NOTE | 2023-11-10 22:01 | PC.NURSE ---
patient sating at 97% while on 1LNC. At this time, turned to 0L and staying around 95-96%.
[2023-11-10] MEDS: AZITHROMYCIN 500 MG in 0.9 % SODIUM CHLORIDE 250 ML 250 MG IV (22:43)
[2023-11-11] VITALS: BP 154/76; PULSE 94; RESP 16; TEMP 36.5; O2SAT 98
[2023-11-11 04:00] VITALS: BP 140/48; PULSE 97; RESP 16; TEMP 36.4; O2SAT 99; BMI 21.8
[2023-11-11 06:53] LABS: Basophils # 0.1 K/mm3 (0-0.2); Basophils % 0.7 % (0.1-2.0); Eosinophils # 0.1 K/mm3 (0.0-0.4); Eosinophils % 0.9 % (0.1-12.0); Hematocrit 38.5 % (37.0-47.0); Hemoglobin 12.3 g/dL (12.2-16.2); Lymphocytes # 1.4 K/mm3 (0.7-4.5); Lymphocytes % 18.5 % (10-50); Mean Corpuscular HGB Conc 32.1 g/dL (31.8-35.4); Mean Corpuscular Hemoglobin 30.9 pg (27.0-31.2); Mean Corpuscular Volume 96.1 fl (81-99); Mean Platelet Volume 8.2 fl (7.4-10.4); Monocytes # 0.6 K/mm3 (0.1-1.0); Monocytes % 7.5 % (1.7-9.3); Neutrophils # 5.4 K/mm3 (1.8-7.8); Neutrophils % 72.3 % (37.0-80.0); Platelet Count 268 K/mm3 (142-424); Red Cell Distribution Width 12.7 % (11.5-17.5); White Blood Count 7.4 K/mm3 (4.8-10.8)
[2023-11-11 06:56] LABS: Chloride 109 mmol/L (98-107); Sodium 141 mmol/L (136-145)
[2023-11-11 06:59] LABS: Blood Urea Nitrogen 11 mg/dl (7-17); Calcium 8.2 mg/dl (8.4-10.2); Carbon Dioxide 24 mmol/L (22.0-30.0); Creatinine Clearance Estimated 43 mL/min (50-200); Estimated Glomerular Filt Rate 97 ml/min (>60); GFR (African American) 117 ML/MIN (>60)
[2023-11-11 07:05] LABS: Glucose 40 mg/dl (74-100)
--- NOTE | 2023-11-11 07:16 | PC.NURSE ---
lab called with a critical glucose. Ginny notified. Juice given will check sugar in 15 min.
--- NOTE | 2023-11-11 07:34 | PC.NURSE ---
FSBS 65
[2023-11-11 07:40] LABS: POC Glucose,Bedside 65 (70-110)
[2023-11-11 08:00] VITALS: BP 139/84; PULSE 100; RESP 19; TEMP 36.4; O2SAT 94
--- NOTE | 2023-11-11 08:02 | PC.NURSE ---
fsbs 114
[2023-11-11 08:08] LABS: POC Glucose,Bedside 114 (70-110)
[2023-11-11] MEDS: ENOXAPARIN 40MG/0.4ML SYRINGE 40 MG SQ (08:13)
--- NOTE | 2023-11-11 10:46 | HMH.SLDYSPHA ---
Speech & Language Evaluation Speech/Language Dysphagia Evaluation Start: 11/11/23 10:34 Freq: ONCE Status: Active Protocol: Document 11/11/23 10:36 JADYN (Rec: 11/11/23 10:46 [id number] Dysphagia Assess/Goals/Plan Assessment Date of Evaluation: 11/11/23 Evaluation Type Initial Certification Assessment/Problems dysphagia/diet modification per MD order. Does Patient Qualify for Service No Qualify/Failure Comment Based on clinical observations made during CSE, mastication and manipulation of bolus and swallowing are WFL given pt's baseline function. No further skilled speech therapy services are warranted at this time. [employer] will f/u as needed. Recommendations PHYSICIAN CERTIFICATION: The specified therapy services are required, authorized, and reviewed every 30 days. Diet Recommendations Mechanical Soft Liquid Type Recommendations Normal/Thin SL Swallow Guidelines Assist w/all meals,Alt bite w/ sip thru meal,Standard Aspiration Prec.,Crush meds as allowed*,Eat at slow rate Dysphagia Swallow Precautions/Strategies Small Bites and Sips,Alternate Liquids/Solids Plan Pt/Guardian verbally ack understanding Yes of dx/prognosis/goals G -code Required No Education Instructions provided Discussed CSE results, diet recommendations, aspiration precautions/compensatory strategies with pt, nursing, and care management all of which expressed understanding. Pt/Caregiver able to recall information Able to recall/restate Reinforcement needed No Speech & Language HPI History Present Illness Description of Patient Problem [employer] pulled following information from H&P dated , 78-year-old female presenting to the emergency department for evaluation with concern for breathing difficulties. According to EMS who brought the patient in , they were called to the home because the patient seemed to be having trouble breathing. Patient is in care of her sister and grandson. They were not able to provide much other history. They stated that she had snoring upon their arrival so they put her on 15 L nonrebreather. On this, her oxygen saturation and vitals were fine. They noted she did not talk to them to contribute history, but she was maintaining her airway . We called and had an interactive discussion with the patient's sister who advised that she has a history of CP and is bedbound at baseline. She is mostly nonverbal according to the sister, but does answer some simple questions. She notes that she called EMS because she seemed to be breathing more shallow than usual. She also noted that she was grabbing at her neck, so she thought maybe she had neck pain, so she did give her Tylenol. No other concerns noted at this time. Patient does not contribute to history given her baseline mental status. Head CT reports IMPRESSION: 1. No acute intracranial disease or hemorrhage. 2. No obvious acute infarct. Please note if the patient's symptoms do not improve, or worsen, consider MRI with diffusion imaging. 3. Chronic deep white matter ischemic and senescent changes noted. CXR reports, 1. Left lower lobe atelectasis versus scarring with decreased volume of left lung, compared with the right side. 2. No focal airspace consolidation Rehab Services Assessed Speech therapy General Information General Current Food Consistancy Mechanical Soft,Ground Meats Dentition Edentulous Ability to Follow Directions Fair Communication Ability Severe Impairment Dysphagia:Food Presentation Evaluation Food Type Pureed,Mechanical Soft,Liquid, Pudding Dysphagia Evaluation Summary Pt was seen sitting upright in bed this morning for a clinical bedside swallow evalaution. Pt was able to converse with [employer] via one word phrases, nodding head, and smiling. Speech intelligibility is impaired 2' CP dx. Pt's neck was skewed to left and complained on it hurting. Oral care was provided prior to administering bolus trials. Consistencies were given x3 to assess for consistency of swallow and signs of fatigue. Trials were given as follows: thin liquids (ice chip/ spoonful of water/straw sip/ two consecutive sips from a straw), pudding, pureed applesauce, MS solid (soft cookie.) No overt s/sxs of aspiration were noted throughout the assessment. However, pt would benefit from assists during feeding 2' attention and frequently laughing and/or attempting to communicate while bolus is within oral cavity. It is recommended she continue of MS ground and thin liquid diet. No further skilled speech therapy services are warranted at this time. [employer] will f/u as needed. Stroke Dysphagia Assessment PHYSICIAN CERTIFICATION: I certify the specified therapy services for Rama Soard are required, authorized, and reviewed every 30 days.
[2023-11-11 12:00] VITALS: BP 145/73; PULSE 88; RESP 18; TEMP 37.6; O2SAT 95
[2023-11-11] MEDS: MORPHINE 2MG/ML SYRINGE 2 MG IV ×2 (12:01→23:42)
--- NOTE | 2023-11-11 12:31 | PC.NURSE ---
Fed pt breakfast @ 0745. Preformed oral care and washed face.
--- NOTE | 2023-11-11 12:34 | PC.NURSE ---
fed pt lunch @ 1215. Preformed oral care
[2023-11-11 14:03] VITALS: BMI 21.8
[2023-11-11 15:53] VITALS: BP 155/88; PULSE 86; RESP 21; TEMP 36.4; O2SAT 95
--- NOTE | 2023-11-11 16:03 | CARE MANAGER ---
Addendum entered by Anette [place] 11/13/23 10:09: Patient's sister (LATANYA) stated that she is not comfortable completing paperwork for [facility] at this time. LATANYA stated that she wants someone to review paperwork prior to making her LTC. LATANYA prefers patient return back home at this time. LATANYA also expressed that she is NOT interested in home health services. I will update Sanjeev cordero/ [facility] and Dr Gross. Patient will discharge home today. Addendum entered by Anette [place] 11/12/23 14:55: Sanjeev cordero/ [facility] stated that she can accept patient and will start auth today. Addendum entered by [facility] 11/12/23 14:52: Sanjeev cordero/ [facility] and Jaimie Naylor are currently reviewing patient information. Original Note: Called and spoke with patient's sister (who verbalized she is LATANYA) regarding discharge planning. She stated that she is agreeable to termite helper placement as well as Hospice if needed. Patient Choice verbally signed for [facility] and [facility]. Referral packet faxed to all mentioned facilities. CM will continue to work on ICF placement and work with accepting facility as well as MD on need for Hospice referral.
[2023-11-11] MEDS: 0.9 % SODIUM CHLORIDE 1000ML 1,000 ML 50 ML IV (16:44)
--- NOTE | 2023-11-11 18:33 | EXP.ACUTE.PN ---
Subjective *Date: 11/11/23 *Time: 22:56 Interval history: Patient stable on room air today. Interactive. Has had some emotional lability. Difficult time with communication due to understanding of patient's verbal communication. Afebrile. Tolerating p.o. intake with assistance. No nausea or vomiting. Appears to want interaction with staff and does well with an staff check on her regularly. Medical Exam Vital signs and Labs for Last 24 Hours: Vital Signs Temp Pulse Resp BP Pulse Ox O2 Del Method O2 Flow Rate 11/11/23 15:53 97.5 F L 86 21 155/88 H 95 Room Air 11/11/23 13:00 Room Air 11/11/23 12:00 99.6 F 88 18 145/73 H 95 Room Air 11/11/23 11:00 Room Air 11/11/23 09:00 Room Air 11/11/23 08:00 97.6 F 100 H 19 139/84 94 L Room Air 11/11/23 06:19 Room Air 11/11/23 04:58 Room Air 11/11/23 04:00 97.6 F 97 H 16 140/48 L 99 11/11/23 02:22 Room Air 11/11/23 01:00 Room Air 11/11/23 00:00 97.7 F 94 H 16 154/76 H 98 Room Air 11/10/23 23:00 Room Air 11/10/23 21:00 Nasal Cannula 1 11/10/23 20:00 Nasal Cannula 1 11/10/23 20:00 98.9 F 92 H 16 146/70 H 98 11/10/23 18:49 Nasal Cannula 2 Intake and Output 11/11/23 11/11/23 11/11/23 07:59 15:59 23:59 Intake Total 640 / 1120 480 / 1120 Output Total 500 / 1500 1000 / 1500 Balance 140 / -380 -520 / -380 Intake: Intake, Oral Amount 480 / 480 Intake, Total IV Amount 640 / 640 0.9 % Sodium Chloride 1000ML 1, 640 / 640 000 ml @ 50 mls/hr IV .Q20H [facility] Rx#:[id number] Output: Output, Urine Amount 500 / 1500 1000 / 1500 Other: Number of Voids 0 Number of Unmeasured Voids 1 0 Number of Bowel Movements 1 Weight 57.924 kg 57.92 kg Patient Weight 11/11/23 23:59 Weight 57.92 kg Laboratory Results - last 24 hr 11/11/23 05:47: WBC 7.4 D, RBC 4.00 L, Hgb 12.3, Hct 38.5, MCV 96.1, MCH 30.9, MCHC 32.1, RDW 12.7, Plt Count 268, MPV 8.2, Neut % (Auto) 72.3, Lymph % (Auto) 18.5, [place] % (Auto) 7.5, Eos % (Auto) 0.9, Baso % (Auto) 0.7, Neut # (Auto) 5.4, Lymph # (Auto) 1.4, [place] # (Auto) 0.6, Eos # (Auto) 0.1, Baso # (Auto) 0.1, Sodium 141, Potassium 4.0 D, Chloride 109 H, Carbon Dioxide 24, Anion Gap 12.0, BUN 11 D, Creatinine 0.60, Estimated Creat Clear 43, Estimated GFR 97, Est GFR ( Amer) 117, Glucose 40 L D, Calcium 8.2 L, Magnesium 2.0 11/11/23 07:33: POC Glucose 65 L 11/11/23 08:01: POC Glucose 114 H I & O for Labs for Last 24 Hours: Intake & Output 11/08/23 11/09/23 11/10/23 11/11/23 23:59 23:59 23:59 23:59 Intake Total 1412 / 1412 1120 / 1120 Output Total 1400 / 1400 1500 / 1500 Balance -380 / -380 Weight 54.885 kg 54.885 kg 57.92 kg Constitutional: Present no acute distress, thin, chronically ill appearing and cooperative Head: Present atraumatic and normocephalic ENT: Present normal exam Neck: Present normal inspection Respiratory: Present normal respiratory effort; Absent rhonchi or wheezes Cardiac: Present Reg Rate and Rhythm GI: Present soft and normal bowel sounds; Absent distention or tenderness Extremities: Present normal inspection and full ROM; Absent edema Comment:: Contractures of upper limbs bilaterally, stiffness in legs Skin: Present intact; Absent erythema Neuro: Present alert and awake Comment:: Chronic contracture and debility from cerebral palsy. Assessment and Plan *Assessment and plan (1) Pneumonia: Status: Acute Qualifiers: Laterality: left Lung location: lower lobe of lung Pneumonia type: due to unspecified organism Qualified Code(s): J18.9 - Pneumonia, unspecified organism Category: Medical Code(s): J18.9 - Pneumonia, unspecified organism (2) Respiratory failure: Status: Acute Qualifiers: Chronicity: acute Respiratory failure complication: hypoxia Qualified Code(s): J96.01 - Acute respiratory failure with hypoxia Category: Medical Code(s): J96.90 - Respiratory failure, unspecified, unspecified whether with hypoxia or hypercapnia (3) Cerebral palsy: Status: Chronic Category: Medical Code(s): G80.9 - Cerebral palsy, unspecified (4) AMS (altered mental status): Status: Acute Qualifiers: Altered mental status type: unspecified Qualified Code(s): R41.82 - Altered mental status, unspecified Category: Medical Code(s): R41.82 - Altered mental status, unspecified Plan 78-year-old female presenting to the emergency department for evaluation with concern for breathing difficulties. Data is limited due to patient mental status. initially taken into stroke protocols. CTA of head negative. patient probably close to her baseline. Labs were obtained that demonstrated mild leukocytosis in the setting of probable pneumonia. Patient was noted to be hypoxic on room air with oxygen saturation in the high 80s, for which she was placed on 2 L nasal cannula. sepsis bolus given. started on Abx. Discussed with ED. Agreed for admission. Patient has done well since admission. Weaned to room air. Interactive on exam. Appears to be at baseline mentation. Patient will benefit from placement. Case management consulted and assisting with discharge disposition. Family unable to care for her at home any longer. Problems addressed as follows: -Acute respiratory failure secondary to left lobe pneumonia: White cell count normal at 7.4. Hemoglobin 12.3. On room air with sats greater than 90%. Repeat CBC, CMP, magnesium ordered for the morning. Electrolytes normal with sodium 141, chloride 109, potassium 4.0, magnesium 2.0. Continue ceftriaxone and azithromycin daily. Anticipate 5 days of antibiotics. Blood and sputum cultures pending Speech consult placed, passed bedside swallow with nursing. Will continue modified diet for now pending further recommendations from speech Urinalysis pending Personally reviewed chest imaging, questionable left sided airspace disease versus hypoinflation. Elevated troponin: troponin peaked at 0.06. Patient denies any chest pain today. Suspect due to the physiologic stress of her event with hypoxia yesterday. In light of no symptoms, will hold on further consult and eval pending goals of care discussion. Initiate aspirin 81 mg daily and metoprolol 12.5 mg twice daily. Monitor for improvement in blood pressure and heart rate. Cerebral palsy: Chronic, complicates all aspects of her care. Patient necessitating significant assistance. PT and OT evaluating. Will discuss goals of care with family and placement recommendations. Lovenox for DVT ppx On protonix Modified diet Full code
[2023-11-11 20:00] VITALS: BP 152/86; PULSE 86; RESP 18; TEMP 36.7; O2SAT 96
[2023-11-11] MEDS: PANTOPRAZOLE 40MG TABLET 40 MG PO (20:24)
[2023-11-11] MEDS: ACETAMINOPHEN 325MG TAB 650 MG PO (20:28)
[2023-11-11] MEDS: AZITHROMYCIN 500 MG in 0.9 % SODIUM CHLORIDE 250 ML 250 MG IV (22:27)
[2023-11-11] MEDS: CEFTRIAXONE 1 GM 1 GM in 0.9 % SODIUM CHLORIDE 50 ML IV (22:27)
[2023-11-12] VITALS: BP 159/89; PULSE 94; RESP 18; TEMP 36.8; O2SAT 95
--- NOTE | 2023-11-12 03:45 | PC.NURSE ---
Pt is alert to self and difficult to understand. Pt has showed signs of pain this shift and has been treated per MAR. this nurse and tech attempted to turn pt to unfavored side, Pt refused to turn and became upset. despite education on importance of turning and skin care. Pt has voided well this shift and is tolerating RA well. Pt denies pain and needs at this time.
[2023-11-12 04:00] VITALS: BP 149/92; PULSE 85; RESP 18; TEMP 36.8; O2SAT 97; BMI 26.5
[2023-11-12 07:20] LABS: Basophils # 0.1 K/mm3 (0-0.2); Basophils % 0.7 % (0.1-2.0); Eosinophils # 0.1 K/mm3 (0.0-0.4); Eosinophils % 1.5 % (0.1-12.0); Hematocrit 40.7 % (37.0-47.0); Lymphocytes % 24.4 % (10-50); Mean Corpuscular HGB Conc 31.9 g/dL (31.8-35.4); Mean Corpuscular Hemoglobin 30.7 pg (27.0-31.2); Mean Corpuscular Volume 96.5 fl (81-99); Mean Platelet Volume 7.8 fl (7.4-10.4); Monocytes # 0.8 K/mm3 (0.1-1.0); Monocytes % 10.3 % (1.7-9.3); Neutrophils % 63.1 % (37.0-80.0); Platelet Count 289 K/mm3 (142-424); Red Blood Count 4.22 M/mm3 (4.20-5.40); Red Cell Distribution Width 12.8 % (11.5-17.5)
[2023-11-12 08:00] VITALS: BP 152/63; PULSE 81; RESP 16; TEMP 37.1; O2SAT 97
[2023-11-12 08:52] LABS: Chloride 106 mmol/L (98-107)
[2023-11-12 08:53] LABS: Potassium 3.6 mmoL/L (3.5-5.1); Sodium 137 mmol/L (136-145)
[2023-11-12 08:55] LABS: Alanine Aminotransferase 15 U/L (12-78); Alkaline Phosphatase 127 U/L (38-126); Anion Gap 5.6 mEq/L (5-15); Aspartate Amino Transferase 27 U/L (14-36); Bilirubin,Total 0.4 mg/dl (0.2-1.3); Blood Urea Nitrogen 4 mg/dl (7-17); Carbon Dioxide 29 mmol/L (22.0-30.0); Creatinine Clearance Estimated 52 mL/min (50-200); Estimated Glomerular Filt Rate 120 ml/min (>60); GFR (African American) 145 ML/MIN (>60)
[2023-11-12 08:56] LABS: Calcium 8.2 mg/dl (8.4-10.2); Globulin 3.1 g/dL (1.3-3.2); Glucose 101 mg/dl (74-100); Total Protein,Serum 6.1 g/dl (6.3-8.2)
[2023-11-12] MEDS: ASPIRIN EC 81MG TABLET 81 MG PO (09:10)
[2023-11-12] MEDS: ENOXAPARIN 40MG/0.4ML SYRINGE 40 MG SQ (09:10)
[2023-11-12] MEDS: METOPROLOL TARTRATE 25MG TABLET 12.5 MG PO ×2 (09:10→20:58)
[2023-11-12 12:00] VITALS: BP 156/104; PULSE 87; RESP 18; TEMP 36.5; O2SAT 94
--- NOTE | 2023-11-12 15:32 | P.EN_ITS ---
Advance care planning note: Active diagnosis:Cerebral palsy, progressive decline, cachexia, pneumonia The patient's active diagnoses are of sufficient risk that focused discussion on advanced care planning is indicated in order to allow the patient to thoughtfully consider personal goals of care; and, if situations arise that prevent the ability to personally give input, to ensure appropriate representation of their personal desires through documentation or informed surrogate decision makers. Discussion: Persons present and participating in discussion: Patient's sister and LATANYA stephenson over the phone Discussion: Discussed patient's progressive debility and care needs. She is beyond the ability of sister to care for her any longer. Discussed goals of care and CODE STATUS. POA request patient be made DNR. Wants us to treat her and take care of her but if her heart stops, she stops breathing, and she dies, she wants her to be allowed to pass peacefully naturally. Discussed need for long-term placement. Discussed patient's current status, responding well to treatment. Appears to be at baseline function which is fully dependent for care. Is bedbound. Afebrile and on room air at this time. Time spent: Total time spent [id number] in education and discussion directly related to advance care plannin minutes Ruperto Gross 11/12/23 8 to 8:20 AM
--- NOTE | 2023-11-12 15:32 | EXP.ACUTE.PN ---
Subjective *Date: 11/12/23 *Time: 15:43 Interval history: No events overnight. Pleasant on exam this morning. Afebrile. Tolerating p.o. intake. Tolerating meds. Goals of care discussion with sister this morning prior to rounds. States she likes to watch TV. Medical Exam Vital signs and Labs for Last 24 Hours: Vital Signs Temp Pulse Resp BP Pulse Ox O2 Del Method 11/12/23 14:33 Room Air 11/12/23 13:00 Room Air 11/12/23 12:00 97.7 F 87 18 156/104 H 94 L Room Air 11/12/23 10:55 Room Air 11/12/23 09:00 Room Air 11/12/23 08:00 97 Room Air 11/12/23 08:00 98.7 F 81 16 152/63 H 97 Room Air 11/12/23 07:00 Room Air 11/12/23 05:00 Room Air 11/12/23 04:00 98.3 F 85 18 149/92 H 97 Room Air 11/12/23 03:00 Room Air 11/12/23 00:31 Room Air 11/12/23 00:00 98.3 F 94 H 18 159/89 H 95 Room Air 11/11/23 23:00 Room Air 11/11/23 21:00 Room Air 11/11/23 20:00 98.1 F 86 18 152/86 H 96 Room Air 11/11/23 20:00 Room Air 11/11/23 18:55 Room Air 11/11/23 17:00 Room Air 11/11/23 15:53 97.5 F L 86 21 155/88 H 95 Room Air Intake and Output 11/11/23 11/12/23 11/12/23 23:59 07:59 15:59 Intake Total 360 / 2270 790 / 1030 240 / 1030 Output Total 0 / 1500 0 / 0 Balance 360 / 770 790 / 1030 240 / 1030 Intake: Intake, Oral Amount 360 / 1080 240 / 480 240 / 480 Intake, Total IV Amount 550 / 550 0.9 % Sodium Chloride 1000ML 1, 250 / 250 000 ml @ 50 mls/hr IV .Q20H [facility] Rx#:[id number] Azithromycin 500 mg In 0.9 % 250 / 250 Sodium Chloride 250 ml @ 250 mls/hr IV Q24H [facility] Rx#:[id number] Ceftriaxone 1 gm 1 gm In 0.9 % 50 / 50 Sodium Chloride 50 ml @ 100 mls /hr IV Q24H [facility] Rx#:[id number] Output: Output, Urine Amount 0 / 1500 0 / 0 Other: Number of Unmeasured Voids 1 1 Weight 70.579 kg Patient Weight 11/12/23 23:59 Weight 70.579 kg Laboratory Results - last 24 hr 11/12/23 06:07: WBC 8.0, RBC 4.22, Hgb 13.0, Hct 40.7, MCV 96.5, MCH 30.7, MCHC 31.9, RDW 12.8, Plt Count 289, MPV 7.8, Neut % (Auto) 63.1, Lymph % (Auto) 24.4, [place] % (Auto) 10.3 H, Eos % (Auto) 1.5, Baso % (Auto) 0.7, Neut # (Auto) 5.0, Lymph # (Auto) 2.0, [place] # (Auto) 0.8, Eos # (Auto) 0.1, Baso # (Auto) 0.1, Sodium 137, Potassium 3.6, Chloride 106, Carbon Dioxide 29, Anion Gap 5.6, BUN 4 L D, Creatinine 0.50 L, Estimated Creat Clear 52, Estimated GFR 120, Est GFR ( Amer) 145 D, Glucose 101 H, Calcium 8.2 L, Magnesium 2.0, Total Bilirubin 0.4, AST 27, ALT 15, Alkaline Phosphatase 127 H, Total Protein 6.1 L, Albumin 3.0 L, Globulin 3.1, Albumin/Globulin Ratio 1.0 L I & O for Labs for Last 24 Hours: Intake & Output 11/09/23 11/10/23 11/11/23 11/12/23 23:59 23:59 23:59 23:59 Intake Total 1412 / 1412 1480 / 2270 1030 / 1030 Output Total 1400 / 1400 1500 / 1500 0 / 0 Balance - 1030 / 1030 Weight 54.885 kg 54.885 kg 57.92 kg 70.579 kg Microbiology Reports for the Last 24 Hours: Microbiology 11/09/23 20:50 Urine,Catheterized Urine Culture - Final Constitutional: Present no acute distress, thin, chronically ill appearing and cooperative Head: Present atraumatic and normocephalic ENT: Present normal exam Neck: Present normal inspection Respiratory: Present normal respiratory effort; Absent rhonchi or wheezes Cardiac: Present Reg Rate and Rhythm GI: Present soft and normal bowel sounds; Absent distention or tenderness Extremities: Present normal inspection and full ROM; Absent edema Comment:: Contractures of upper limbs bilaterally, stiffness in legs Skin: Present intact; Absent erythema Neuro: Present alert and awake Comment:: Chronic contracture and debility from cerebral palsy. Assessment and Plan *Assessment and plan (1) Pneumonia: Status: Acute Qualifiers: Laterality: left Lung location: lower lobe of lung Pneumonia type: due to unspecified organism Qualified Code(s): J18.9 - Pneumonia, unspecified organism Category: Medical Code(s): J18.9 - Pneumonia, unspecified organism (2) Respiratory failure: Status: Acute Qualifiers: Chronicity: acute Respiratory failure complication: hypoxia Qualified Code(s): J96.01 - Acute respiratory failure with hypoxia Category: Medical Code(s): J96.90 - Respiratory failure, unspecified, unspecified whether with hypoxia or hypercapnia (3) Cerebral palsy: Status: Chronic Category: Medical Code(s): G80.9 - Cerebral palsy, unspecified (4) AMS (altered mental status): Status: Acute Qualifiers: Altered mental status type: unspecified Qualified Code(s): R41.82 - Altered mental status, unspecified Category: Medical Code(s): R41.82 - Altered mental status, unspecified Plan 78-year-old female presenting to the emergency department for evaluation with concern for breathing difficulties. Data is limited due to patient mental status. initially taken into stroke protocols. CTA of head negative. patient probably close to her baseline. Labs were obtained that demonstrated mild leukocytosis in the setting of probable pneumonia. Patient was noted to be hypoxic on room air with oxygen saturation in the high 80s, for which she was placed on 2 L nasal cannula. sepsis bolus given. started on Abx. Discussed with ED. Agreed for admission. Patient has done well since admission. Weaned to room air. Interactive on exam. Appears to be at baseline mentation. Awaiting placement. Case management assisting with care. Therapy working with her daily. Problems addressed as follows: -Acute respiratory failure secondary to left lobe pneumonia: White cell count normal at 7.4. Hemoglobin 12.3. On room air with sats greater than 90%. Repeat CBC, CMP, magnesium ordered for the morning. Electrolytes normal with sodium 141, chloride 109, potassium 4.0, magnesium 2.0. Continue ceftriaxone and azithromycin daily. Anticipate 5 days of antibiotics. Blood and sputum cultures pending Speech consult placed, passed bedside swallow with nursing. Will continue modified diet for now pending further recommendations from speech Urinalysis pending Personally reviewed chest imaging, questionable left sided airspace disease versus hypoinflation. Elevated troponin: troponin peaked at 0.06. Patient denies any chest pain today. Suspect due to the physiologic stress of her event with hypoxia on admission. In light of no symptoms, will hold on further consult and eval pending goals of care discussion. Initiate aspirin 81 mg daily and metoprolol 12.5 mg twice daily. Monitor for improvement in blood pressure and heart rate. Cerebral palsy: Chronic, complicates all aspects of her care. Patient necessitating significant assistance. PT and OT evaluating. Will discuss goals of care with family and placement recommendations. Lovenox for DVT ppx On protonix Modified diet Full code
[2023-11-12 16:00] VITALS: BP 144/73; PULSE 79; RESP 16; TEMP 37.1; O2SAT 96
--- NOTE | 2023-11-12 18:01 | PC.NURSE ---
Patient is alert to self this shift. On RA and tolerating well. No complaints of SOA or distress shown. When attempting to turn q2h she becomes agitated and refuses. Educated patient on importance of turning. Communication with patient is a challenge as patient is difficult to understand. Spoke with POA (Kavya/sister) and code status was changed to DNR. All IV meds stopped per Ginny and changed to PO medications
[2023-11-12 20:00] VITALS: BP 122/72; PULSE 75; RESP 18; TEMP 36.8; O2SAT 96
[2023-11-12] MEDS: CEFDINIR 300MG CAPSULE 300 MG PO (20:58)
[2023-11-12] MEDS: PANTOPRAZOLE 40MG TABLET 40 MG PO (20:58)
[2023-11-13] VITALS: BP 134/58; PULSE 64; RESP 18; TEMP 36.9; O2SAT 95
[2023-11-13 04:00] VITALS: BP 135/72; PULSE 78; RESP 18; TEMP 36.8; O2SAT 96; BMI 21.1
--- NOTE | 2023-11-13 05:08 | PC.NURSE ---
pt is alert to self. tolerating room air well. pt refuses to be turned to right side, gets very agitated and ends up turning back to left side. tolerated po meds. has no complaints of pain unless being turned. vss. bed alarm on
[2023-11-13 06:37] LABS: Chloride 108 mmol/L (98-107); Potassium 3.8 mmoL/L (3.5-5.1); Sodium 139 mmol/L (136-145)
[2023-11-13 06:39] LABS: Alanine Aminotransferase 13 U/L (12-78); Aspartate Amino Transferase 22 U/L (14-36); Blood Urea Nitrogen 7 mg/dl (7-17); Estimated Glomerular Filt Rate 120 ml/min (>60); GFR (African American) 145 ML/MIN (>60)
[2023-11-13 06:40] LABS: Albumin Level 2.8 g/dl (3.5-5.0); Alkaline Phosphatase 104 U/L (38-126); Anion Gap 4.8 mEq/L (5-15); Bilirubin,Total 0.3 mg/dl (0.2-1.3); Calcium 8.3 mg/dl (8.4-10.2); Carbon Dioxide 30 mmol/L (22.0-30.0); Globulin 2.9 g/dL (1.3-3.2); Glucose 96 mg/dl (74-100); Total Protein,Serum 5.7 g/dl (6.3-8.2)
[2023-11-13 08:00] VITALS: BP 134/70; PULSE 81; RESP 22; TEMP 36.4; O2SAT 97
[2023-11-13 08:06] LABS: Creatinine Clearance Estimated 42 mL/min (50-200)
[2023-11-13] MEDS: ENOXAPARIN 40MG/0.4ML SYRINGE 40 MG SQ (08:41)
[2023-11-13] MEDS: ASPIRIN EC 81MG TABLET 81 MG PO (08:41)
[2023-11-13] MEDS: CEFDINIR 300MG CAPSULE 300 MG PO (08:41)
[2023-11-13] MEDS: METOPROLOL TARTRATE 25MG TABLET 12.5 MG PO (08:42)
--- NOTE | 2023-11-13 10:47 | P.DS_ITS ---
General Admission date:: 11/09/23 Discharge date: 11/13/23 HPI HPI HPI: 78-year-old female presenting to the emergency department for evaluation with concern for breathing difficulties. According to EMS who brought the patient in, they were called to the home because the patient seemed to be having trouble breathing. Patient is in care of her sister and grandson. They were not able to provide much other history. They stated that she had snoring upon their arrival so they put her on 15 L nonrebreather. On this, her oxygen saturation and vitals were fine. They noted she did not talk to them to contribute history, but she was maintaining her airway. Hospital Course Hospital Course Hospital Course: 78-year-old female presenting to the emergency department for evaluation with concern for breathing difficulties. Data is limited due to patient mental status. initially taken into stroke protocols. CTA of head negative. patient probably close to her baseline. Labs were obtained that demonstrated mild leukocytosis in the setting of probable pneumonia. Patient was noted to be hypoxic on room air with oxygen saturation in the high 80s, for which she was placed on 2 L nasal cannula. sepsis bolus given. started on Abx. Discussed with ED. Agreed for admission. Patient has done well since admission. Weaned to room air. Interactive on exam. Appears to be at baseline mentation. Awaiting placement. Case management assisting with care. Therapy working with her daily. While she would benefit from placement, family has not completed documentation necessary to proceed. Given patient's stability, she will discharge home with plan to likely place into long-term care from home setting. Problems addressed as follows: -Acute respiratory failure secondary to left lobe pneumonia: Suspicion for pneumonia given respiratory failure on presentation however she responded quite briskly to treatment and was weaned to room air in less than 24 hours. White cell count has normalized. Completed empiric course of antibiotics during admission. No indication for further treatment. Patient doing well clinically. Speech was evaluated, patient passed bedside swallow and had modifications made to her diet via speech. Okay to take in p.o. nutrition and meds. Cultures obtained and negative at time of discharge. Stable to discharge home without oxygen. Elevated troponin: troponin peaked at 0.06. Patient denies any chest pain today. Suspect due to the physiologic stress of her event with hypoxia on admission. In light of no symptoms, will hold on further consult and eval pending goals of care discussion. Initiate aspirin 81 mg daily and metoprolol 12.5 mg twice daily. Improvement in blood pressure rate control with treatment. Cerebral palsy: Chronic, complicates all aspects of her care. Patient necessitating significant assistance. PT and OT evaluating. Will discuss goals of care with family and placement recommendations. Stable to discharge home in the care of family. Exam Data for Last 24 hours Vital signs and Labs for Last 24 Hours: Temp Pulse Resp BP Pulse Ox O2 Del Method O2 Flow Rate 97.6 F 81 22 134/70 97 Room Air 1 11/13/23 08:00 11/13/23 08:00 11/13/23 08:00 11/13/23 08:00 11/13/23 08:00 11/13/23 08:00 11/10/23 21:00 Laboratory Results - last 24 hr 11/13/23 05:49: Sodium 139, Potassium 3.8, Chloride 108 H, Carbon Dioxide 30, Anion Gap 4.8 L, BUN 7 D, Creatinine 0.50 L, Estimated Creat Clear 42, Estimated GFR 120, Est GFR ( Amer) 145, Glucose 96, Calcium 8.3 L, Total Bilirubin 0.3, AST 22, ALT 13, Alkaline Phosphatase 104, Total Protein 5.7 L, Albumin 2.8 L, Globulin 2.9, Albumin/Globulin Ratio 1.0 L I & O for Last 24 hours: Intake & Output 11/10/23 11/11/23 11/12/23 11/13/23 23:59 23:59 23:59 23:59 Intake Total 1412 / 1412 1480 / 2270 1270 / 1320 290 / 290 Output Total 1400 / 1400 1500 / 1500 0 / 0 0 / 0 Balance - 1270 / 1320 290 / 290 Weight 54.885 kg 57.92 kg 70.579 kg 56.047 kg Microbiology Reports for the Last 24 Hours: Microbiology 11/09/23 21:25 Blood Blood Culture - Preliminary 11/09/23 21:30 Blood Blood Culture - Preliminary Constitutional Constitutional: no acute distress, thin, chronically ill appearing and cooperative *Routine HEENT Exam Head: Present normocephalic Eye: Present EOMI and PERRL ENT: Present mucous membranes moist Comments: Misalignment of eyes. Edentulous *Routine Neck Exam Neck: Present supple; Absent lymphadenopathy *Routine Respiratory Exam Respiratory: Present CTA bilaterally; Absent rhonchi, wheezes or crackles *Routine Cardiovascular Exam Cardiovascular: Present RRR *Routine Abdominal Exam Abdominal: Present soft and normoactive bowel sounds; Absent tenderness *Routine Rectal Exam Patient deferred: visual exam *Routine Exam Patient deferred: external exam *Routine Extremities Exam Extremities: Absent cyanosis, clubbing or edema Comments: Contractures from chronic cerebral palsy. Poor muscle mass *Routine Skin Exam Skin: Present intact and warm; Absent rash *Routine Neurological Exam Neurological: Present alert and moving all extremities; Absent altered mental status Comments: Oriented to self. Wanting to go home. Baseline mentation Results Data Completed and Pending Labs on day of discharge: Labs from last 24 hours 11/13/23 05:49 Sodium 139 Potassium 3.8 Chloride 108 H Carbon Dioxide 30 Anion Gap 4.8 L BUN 7 D Creatinine 0.50 L Estimated Creat Clear 42 Estimated GFR 120 Est GFR ( Amer) 145 Glucose 96 Calcium 8.3 L Total Bilirubin 0.3 AST 22 ALT 13 Alkaline Phosphatase 104 Total Protein 5.7 L Albumin 2.8 L Globulin 2.9 Albumin/Globulin Ratio 1.0 L Preliminary micro results at discharge 11/09/23 21:25 Blood Culture - Preliminary Blood 11/09/23 21:30 Blood Culture - Preliminary Blood DS: Diagnosis Discharge Diagnosis (1) Pneumonia: Status: Acute Code(s): J18.9 - Pneumonia, unspecified organism Qualifiers: Laterality: left Lung location: lower lobe of lung Pneumonia type: due to unspecified organism Qualified Code(s): J18.9 - Pneumonia, unspecified organism (2) Respiratory failure: Status: Acute Code(s): J96.90 - Respiratory failure, unspecified, unspecified whether with hypoxia or hypercapnia Qualifiers: Chronicity: acute Respiratory failure complication: hypoxia Qualified Code(s): J96.01 - Acute respiratory failure with hypoxia (3) Cerebral palsy: Status: Chronic Code(s): G80.9 - Cerebral palsy, unspecified (4) AMS (altered mental status): Status: Acute Code(s): R41.82 - Altered mental status, unspecified Qualifiers: Altered mental status type: unspecified Qualified Code(s): R41.82 - Alt ered mental status, unspecified Meds Home Medications and Allergies Home Medications Medication Instructions Recorded Confirmed Type aspirin 81 mg tablet,delayed 81 mg PO DAILY 30 days #30 tabs 11/13/23 Rx release metoprolol tartrate 25 mg tablet 12.5 mg (1/2 x 25 mg) PO BID 30 11/13/23 Rx days #30 tabs New Prescriptions to Start Prescriptions: Ruperto Salinas metoprolol tartrate Ruperto Gross Allergies Allergy/AdvReac Type Severity Reaction Status Date / Time No Known Allergies Allergy Verified 01/06/23 13:47 Discharge Plan Disposition Patient Disposition: Home, Self-Care Condition: Fair Discharge Order Discharge Orders: Discharge Order (Routine); Ordered 11/13/23 Ordered By: Ruperto Gross Follow up Plan Follow up with: Gregory Michaels MD [Staff Physician] - 11/23/23 9:00 am Prescriptions/Medication Reconciliation: New aspirin 81 mg Tablet,Delayed Release (Dr/Ec) 81 mg PO DAILY 30 Days Qty: 30 0RF metoprolol tartrate 25 mg Tablet 12.5 mg PO BID 30 Days Qty: 30 0RF Problem Reconciliation Problems Reviewed?: Yes Patient Discharge Instructions ACTIVITY: Continue current activity DIET: continue same diet Patient Instructions: DI for Pneumonia -- Adult, DI for Respiratory Failure, Catheter-Associated Urinary Tract Infection Providers Primary Care Provider: Provider,Referral Admit Provider: Patrick Malik Attending Provider: Patrick Malik
[2023-11-13 11:46] VITALS: BP 144/82; PULSE 67; RESP 20; TEMP 36.6; O2SAT 94
--- NOTE | 2023-11-16 12:00 | CARE MANAGER ---
Spoke with patient's sister. She states the patient is doing better. She is aware of follow up appointments and new medications. Denies questions or concerns. OLGA LIDIA Smart
== END 2023-11-13 12:50 | disposition home or self-care (01) | DRG 193 ==
LOC: ER 22:16 → 2ND 11-10 06:20
PROVIDERS: Internal Medicine Adolescent Medicine; Nurse Practitioner Family; Admitting Provider Internal Medicine; Emergency Provider Emergency Medicine; Visit Provider Internal Medicine
DX: J18.9 Pneumonia, unspecified organism (principal); J96.01 Acute respiratory failure with hypoxia; G80.9 Cerebral palsy, unspecified; R77.8 Other specified abnormalities of plasma proteins
CPT/HCPCS: 36415; 51702; 70450; 70496; 70498; 71045; 80048; 80053; 80307; 81001; 82140; 82803; 82962; 83605; 83690; 83735; 84436; 84443; 84484; 85007; 85025; 85610; 85730; 87040; 87086; 87636; 92610; 93005; 97163; 97166; 99285; J0456; J0696; Q9967

== ENCOUNTER 2023-12-04 12:52 | Emergency (ER) | payer MEDICARE, MEDICAID, SELFPAY ==
[2023-12-04] VITALS (13 sets, daily range): BP systolic 90–142; BP diastolic 50–92; PULSE 53–91; RESP 16; TEMP 36.6–36.7; O2SAT 94–98; BMI 19.1
--- NOTE | 2023-12-04 12:57 | ED_ITS ---
Discharge Plan Disposition Patient Disposition: Home, Self-Care Condition: Good Prescriptions Prescriptions: No Action aspirin 81 mg Tablet,Delayed Release (Dr/Ec) 81 mg PO DAILY 30 Days Qty: 30 0RF metoprolol tartrate 25 mg Tablet 12.5 mg PO BID 30 Days Qty: 30 0RF Referrals Follow up/Referrals: Provider,Referral, [Primary Care Provider] - See instructions Activity Restrictions/Add. Instructions Additional Instructions/Restrictions: You were evaluated in the emergency department today. At this time, x-rays are reassuring. Please follow-up closely with your primary care provider. Return to the emergency department for new or worsening symptoms. Clinical Impressions Clinical Impression: Encounter for medical assessment, Cerebral palsy Discharge ED Provider: Kaur Alcaraz General Adult HPI <Cole Champion MD - Last Filed: 12/04/23 16:41> General Chief complaint: Shortness of Breath/Dyspnea Stated complaint: SOA Time Seen by Provider: 12/04/23 12:57 History of Present Illness HPI narrative: The patient presents with a chief complaint of possible shortness of breath as reported by the family. Over the phone, they express concern for ongoing aspiration events when the patient has been eating. The patient herself does not report any specific complaints or symptoms during the visit. The family has expressed concerns about the patient's recent fall, which occurred a couple of days ago, leading to a black eye. The patient reportedly fell, nonsyncopal in nature, from standing. No reported blood thinner usage. Additional history limited secondary to patient's baseline minimally verbal status Please note that above description of symptoms, in this electronic medical record under categorization of recalled from ER triage doctor by RN are reflective of an initial nursing assessment, however, is not reflective of my full history and physical exam that was personally taken and clarified. Consequentially, this preceding description of symptoms, which may include the patient's categorized chief complaint in the EMR, do not reflect my personal clinical impression, and the ultimate description of history of present illness and patient stated complaints should be deferred to this section of the note. Unless stated otherwise or congruent with this section of the note, additional signs, symptoms, or incongruence should be interpreted as inaccurate with my clinical impression. Related Data Previous Rx's Medication Instructions Recorded aspirin 81 mg tablet,delayed 81 mg PO DAILY 30 days #30 tabs 11/13/23 release metoprolol tartrate 25 mg tablet 12.5 mg (1/2 x 25 mg) PO BID 30 11/13/23 days #30 tabs Allergies Allergy/AdvReac Type Severity Reaction Status Date / Time No Known Allergies Allergy Verified 01/06/23 13:47 PFSH <Cole Champion MD - Last Filed: 12/04/23 16:41> [facility] Disclaimer: The information contained in this section may have been updated after the patient was seen, as this information can be updated by other users. Medical History (Updated 12/04/23 @ 17:31 by Kaur Alcaraz DO) Cerebral palsy Social History Smoking Status: Unknown if ever smoked alcohol intake: never substance use type: denies use current occupational status: disabled Travel in the last 8 weeks: None household members: family housing: house marital status: single education level: other <Cole Champion MD - Last Filed: 12/04/23 16:41> ROS Obtained: Yes other As per HPI Physical Exam <Cole Champion MD - Last Filed: 12/04/23 16:41> General General appearance: alert and in no apparent distress Head Head exam: other (Right periorbital ecchymosis, extraocular movements intact, no midline cervical spinal tenderness to palpation,) Eye Eye exam: Present normal appearance Neck Neck exam: Present normal inspection Chest Chest inspection: Present normal inspection and symmetric chest wall rise Respiratory Respiratory exam: Present normal lung sounds bilaterally; Absent respiratory distress Cardiovascular Cardiovascular exam: Present regular rate and normal rhythm Abdominal Exam Abdominal exam: Present soft Back Exam Comment: No thoracic or lumbar spinal tenderness to palpation Neurological Exam Neurological exam: Present alert and other (Baseline minimally verbal) Psychiatric Psychiatric exam: Present normal affect and normal mood Skin Skin exam: Present warm and dry Other Other exam information: Right forearm and elbow ecchymosis, no bony tenderness to palpation, distally neurovascularly intact Medical Decision Making <Cole Champion MD - Last Filed: 12/04/23 16:41> Medical Records Medical records reviewed: Yes I reviewed the patient's medical records. Margarito Inquiry Pt receiving controlled substance: No Vital Signs: 12/04/23 12:52 12/04/23 13:15 12/04/23 13:30 Temperature 97.9 F Temperature Source Oral Pulse Rate 71 61 Pulse Rate [Radial] 91 H Respiratory Rate 16 Blood Pressure 122/73 116/62 Blood Pressure [Right Arm] 142/92 H Blood Pressure Mean Blood Pressure Mean [Right Arm] 108 Blood Pressure Source Blood Pressure Source [Right Arm] Automatic Cuff Blood Pressure Position Blood Pressure Position [Right Arm] Sitting 02 Sat by Pulse Oximetry 96 94 L 94 L Oxygen Delivery Method Room Air Room Air 12/04/23 14:00 12/04/23 15:01 12/04/23 15:30 Temperature Temperature Source Pulse Rate 59 L 65 64 Pulse Rate [Radial] Respiratory Rate Blood Pressure 107/60 L 125/57 L 132/59 L Blood Pressure [Right Arm] Blood Pressure Mean Blood Pressure Mean [Right Arm] Blood Pressure Source Blood Pressure Source [Right Arm] Blood Pressure Position Blood Pressure Position [Right Arm] 02 Sat by Pulse Oximetry 94 L 96 97 Oxygen Delivery Method Room Air Room Air Room Air 12/04/23 16:00 12/04/23 16:30 12/04/23 17:00 Temperature Temperature Source Pulse Rate 53 L 57 L 69 Pulse Rate [Radial] Respiratory Rate 16 Blood Pressure 105/59 L 105/50 L 120/52 L Blood Pressure [Right Arm] Blood Pressure Mean 77 Blood Pressure Mean [Right Arm] Blood Pressure Source Blood Pressure Source [Right Arm] Blood Pressure Position Blood Pressure Position [Right Arm] 02 Sat by Pulse Oximetry 98 95 94 L Oxygen Delivery Method Room Air Room Air 12/04/23 17:30 12/04/23 18:08 12/04/23 18:17 Temperature Temperature Source Pulse Rate 64 57 L 60 Pulse Rate [Radial] Respiratory Rate Blood Pressure 98/52 L 98/50 L 90/50 L Blood Pressure [Right Arm] Blood Pressure Mean Blood Pressure Mean [Right Arm] Blood Pressure Source Automatic Cuff Blood Pressure Source [Right Arm] Blood Pressure Position Supine Blood Pressure Position [Right Arm] 02 Sat by Pulse Oximetry 98 95 95 Oxygen Delivery Method Room Air Room Air Room Air 12/04/23 18:19 Temperature 98.1 F Temperature Source Oral Pulse Rate 60 Pulse Rate [Radial] Respiratory Rate 16 Blood Pressure 90/50 L Blood Pressure [Right Arm] Blood Pressure Mean Blood Pressure Mean [Right Arm] Blood Pressure Source Automatic Cuff Blood Pressure Source [Right Arm] Blood Pressure Position Sitting Blood Pressure Position [Right Arm] 02 Sat by Pulse Oximetry Oxygen Delivery Method Room Air Orders (Tests/Meds): ORDERS Category Date Time Status CT cervical spine wo con Stat Cat Scan 12/04/23 13:[address] head/brain wo con Stat Cat Scan 12/04/23 13:37 Completed XR chest portable Stat Exams 12/04/23 13:37 Completed Medical Decision Narrative: Patient with history and exam per above presenting for evaluation of concerns per family of aspiration events when feeding, and evaluation following reported nonsyncopal fall from standing within the past 72 hours Diagnoses considered include IPH, subdural hematoma, skull fracture, no bony tenderness to palpation of elbow with overlying ecchymosis to suggest fracture, no overt midline cervical spinal tenderness to palpation although exam limited secondary to patient's baseline minimally verbal status. Diagnoses considered also include microaspiration, aspiration pneumonia, aspiration pneumonitis ED workup and treatment included: Chest x-ray, CT C-spine, CT head Imaging was independently visualized and interpreted by me, significant for no acute findings on CT head or chest x-ray, CT C-spine pending. Please refer to radiology report for full details. At this time care was transferred to incoming physician. <Kaur Alcaraz, DO - Last Filed: 12/04/23 23:14> Vital Signs: 12/04/23 12:52 12/04/23 13:15 12/04/23 13:30 Temperature 97.9 F Temperature Source Oral Pulse Rate 71 61 Pulse Rate [Radial] 91 H Respiratory Rate 16 Blood Pressure 122/73 116/62 Blood Pressure [Right Arm] 142/92 H Blood Pressure Mean Blood Pressure Mean [Right Arm] 108 Blood Pressure Source Blood Pressure Source [Right Arm] Automatic Cuff Blood Pressure Position Blood Pressure Position [Right Arm] Sitting 02 Sat by Pulse Oximetry 96 94 L 94 L Oxygen Delivery Method Room Air Room Air 12/04/23 14:00 12/04/23 15:01 12/04/23 15:30 Temperature Temperature Source Pulse Rate 59 L 65 64 Pulse Rate [Radial] Respiratory Rate Blood Pressure 107/60 L 125/57 L 132/59 L Blood Pressure [Right Arm] Blood Pressure Mean Blood Pressure Mean [Right Arm] Blood Pressure Source Blood Pressure Source [Right Arm] Blood Pressure Position Blood Pressure Position [Right Arm] 02 Sat by Pulse Oximetry 94 L 96 97 Oxygen Delivery Method Room Air Room Air Room Air 12/04/23 16:00 12/04/23 16:30 12/04/23 17:00 Temperature Temperature Source Pulse Rate 53 L 57 L 69 Pulse Rate [Radial] Respiratory Rate 16 Blood Pressure 105/59 L 105/50 L 120/52 L Blood Pressure [Right Arm] Blood Pressure Mean 77 Blood Pressure Mean [Right Arm] Blood Pressure Source Blood Pressure Source [Right Arm] Blood Pressure Position Blood Pressure Position [Right Arm] 02 Sat by Pulse Oximetry 98 95 94 L Oxygen Delivery Method Room Air Room Air 12/04/23 17:30 12/04/23 18:08 12/04/23 18:17 Temperature Temperature Source Pulse Rate 64 57 L 60 Pulse Rate [Radial] Respiratory Rate Blood Pressure 98/52 L 98/50 L 90/50 L Blood Pressure [Right Arm] Blood Pressure Mean Blood Pressure Mean [Right Arm] Blood Pressure Source Automatic Cuff Blood Pressure Source [Right Arm] Blood Pressure Position Supine Blood Pressure Position [Right Arm] 02 Sat by Pulse Oximetry 98 95 95 Oxygen Delivery Method Room Air Room Air Room Air 12/04/23 18:19 Temperature 98.1 F Temperature Source Oral Pulse Rate 60 Pulse Rate [Radial] Respiratory Rate 16 Blood Pressure 90/50 L Blood Pressure [Right Arm] Blood Pressure Mean Blood Pressure Mean [Right Arm] Blood Pressure Source Automatic Cuff Blood Pressure Source [Right Arm] Blood Pressure Position Sitting Blood Pressure Position [Right Arm] 02 Sat by Pulse Oximetry Oxygen Delivery Method Room Air Orders (Tests/Meds): ORDERS Category Date Time Status CT cervical spine wo con Stat Cat Scan 12/04/23 13:[address] head/brain wo con Stat Cat Scan 12/04/23 13:37 Completed XR chest portable Stat Exams 12/04/23 13:37 Completed Medical Decision Narrative: Patient with history and exam per above presenting for evaluation of concerns per family of aspiration events when feeding, and evaluation following reported nonsyncopal fall from standing within the past 72 hours Diagnoses considered include IPH, subdural hematoma, skull fracture, no bony tenderness to palpation of elbow with overlying ecchymosis to suggest fracture, no overt midline cervical spinal tenderness to palpation although exam limited secondary to patient's baseline minimally verbal status. Diagnoses considered also include microaspiration, aspiration pneumonia, aspiration pneumonitis ED workup and treatment included: Chest x-ray, CT C-spine, CT head Imaging was independently visualized and interpreted by me, significant for no acute findings on CT head or chest x-ray, CT C-spine pending. Please refer to radiology report for full details. At this time care was transferred to incoming physician. DO Kieran: On my assessment of the patient, she is at her baseline. X-rays and CT scans do not demonstrate any acute pathology. Given this, we called family and notified them that we feel she is appropriate for discharge home with continued outpatient follow-up. Patient was discharged and strict return precautions were given to family. She was transported back in stable condition. Critical Care <Cole Champion MD - Last Filed: 12/04/23 16:41> Critical Care Time Critical Care Time: No
--- NOTE | 2023-12-04 13:37 | CT_ITS ---
FINAL REPORT CLINICAL HISTORY: fall, head injury COMPARISON: 11/09/2023 FINDINGS: Axial images of the head were obtained without contrast. Coronal reformatted images were also obtained. This study was performed with techniques to keep radiation doses as low as reasonably achievable (ALARA). Individualized dose reduction techniques using automated exposure control or adjustment of mA and/or kV according to the patient's size were employed. Motion artifact is identified on some of the images. There is generalized age-appropriate atrophy. Periventricular low-attenuation areas are seen consistent with mild chronic ischemic changes. There is no evidence of intracranial hemorrhage or mass. There is no evidence of acute infarct. There is no evidence of shift of the midline structures. No skull abnormality is seen on the bone window images. There is mucosal thickening of multiple sinuses. IMPRESSION: Atrophy and mild periventricular chronic ischemic changes. No acute intracranial abnormality identified. Reviewed, Interpreted and Dictated by Clayton Cheng III, MD Transcribed by Lacey Roth Authenticated and [facility]
--- NOTE | 2023-12-04 13:37 | XR_ITS ---
FINAL REPORT CLINICAL HISTORY: soa concerns per family, reported hx aspiration COMPARISON: 11/09/2023 FINDINGS: SINGLE-VIEW CHEST The heart size is normal. The mediastinum is normal. There is mild left base opacity, favor atelectasis. There is no pneumothorax. IMPRESSION: Left base atelectasis. Reviewed, Interpreted and Dictated by Clayton Cheng III, MD Transcribed by Lacey Roth Authenticated and [facility]
--- NOTE | 2023-12-04 13:37 | CT_ITS ---
FINAL REPORT CLINICAL HISTORY: fall, head injury FINDINGS: Axial CT images of the cervical spine were obtained without contrast. Sagittal and coronal reformatted images were also obtained. This study was performed with techniques to keep radiation doses as low as reasonably achievable (ALARA). Individualized dose reduction techniques using automated exposure control or adjustment of mA and/or kV according to the patient''s size were employed. There is no evidence of fracture or dislocation. There are moderate and severe degenerative changes with multilevel neural foraminal narrowing. Note is made of leftward curvature. There is mild anterolisthesis of C5 on 6 and C6 on 7. IMPRESSION: Multilevel degenerative changes without acute bony abnormality. Reviewed, Interpreted and Dictated by Clayton Cheng III, MD Transcribed by Lacey Roth Authenticated and [facility]
--- NOTE | 2023-12-04 14:41 | PC.NURSE ---
pt returned from CT by stretcher at this time
--- NOTE | 2023-12-04 20:15 | PC.NURSE ---
confirmed with EMS, Nena,that they were notified and was told they are getting ready to head this way
== END 2023-12-04 20:38 | disposition home or self-care (01) ==
PROVIDERS: Emergency Provider Emergency Medicine
DX: G80.9 Cerebral palsy, unspecified (principal); R06.02 Shortness of breath; W19.XXXA Unspecified fall, initial encounter
CPT/HCPCS: 70450; 71045; 72125; 99285